=== PATIENT | female | born 1950 | race Caucasian/White ===

== ENCOUNTER 2018-09-23 06:14 | Inpatient (IN) | payer MEDICARE, OTHER ==
[2018-09-23] MEDS: ALBUTEROL 0.083% (NEB) 2.5 MG/3 ML AMP HHN (06:29)
[2018-09-23] MEDS: IPRATROPIUM (NEB) 0.5 MG/2.5 ML AMP HHN (06:29)
[2018-09-23 06:54] LABS: ADD MAN DIFF? NO
[2018-09-23 06:55] LABS: WHITE BLOOD COUNT 14.8 10^3/ul (4.8-10.8)
[2018-09-23 06:55] LABS: BASOPHIL # 0.1 10^3/ul (0.0-0.1); BASOPHILS % 0.3 % (0.0-2.0); EOSINOPHILS # 0.4 10^3/ul (0.0-0.5); EOSINOPHILS % 2.8 % (0.0-7.0); HEMATOCRIT 36.7 % (37.0-47.0); HEMOGLOBIN 11.1 g/dl (12.0-16.0); LYMPHOCYTES # 3.5 10^3/ul (0.8-2.9); LYMPHOCYTES % 23.5 % (15.0-51.0); MEAN CORPUSCULAR HEMOGLOBIN 29.6 pg (29.0-33.0); MEAN CORPUSCULAR HGB CONC 30.2 g/dl (32.0-37.0); MEAN CORPUSCULAR VOLUME 97.9 fl (82.0-101.0); MEAN PLATELET VOLUME 9.5 fl (7.4-10.4); MONOCYTE # 1.1 10^3/ul (0.3-0.9); MONOCYTES % 7.6 % (0.0-11.0); NEUTROPHIL # 9.4 10^3/ul (1.6-7.5); NEUTROPHILS % 63.3 % (39.0-77.0); PLATELET COUNT 180 10^3/UL (140-415); RED BLOOD COUNT 3.75 10^6/ul (4.20-5.40); RED CELL DISTRIBUTION WIDTH 15.3 % (11.5-14.5)
[2018-09-23 07:18] LABS: INR 1.02; PROTIME 13.5 Sec (11.9-14.9); PT RATIO 1.1
[2018-09-23] MEDS: SOD CHLORIDE 0.9% 1,000 ML IV ×2 (07:21→15:02)
[2018-09-23] MEDS: METHYLPREDNISOLONE 125 MG INJ IV (07:21)
[2018-09-23] MEDS: CEFTRIAXONE 1 GM/50 ML (PMX) 50 ML IVPB ×2 (07:22→10:30)
[2018-09-23 07:25] LABS: ANION GAP 7 (5-13); BLOOD UREA NITROGEN 14 mg/dl (7-20); CARBON DIOXIDE 27 mmol/L (21-31); CHLORIDE 108 mmol/L (97-110); CREATININE 0.69 mg/dl (0.44-1.00); Estimated GFR > 60 mL/min (>60); GLUCOSE 121 mg/dl (70-220); POTASSIUM 4.2 mmol/L (3.5-5.1); SODIUM 142 mmol/L (135-144)
[2018-09-23 07:36] LABS: TROPONIN-I 0.116 ng/ml (0.000-0.120)
[2018-09-23] MEDS ORDERED: ONDANSETRON 4 MG INJ IV ×2 (08:00→10:30)
[2018-09-23] MEDS ORDERED: ACETAMINOPHEN 325 MG TAB PO ×2 (08:00→10:30)
[2018-09-23] MEDS: AZITHROMYCIN 500MG/NS (PMX) 250 ML IV (08:20)
[2018-09-23] MEDS ORDERED: NACL 0.9% 3 ML SYG IV (10:30)
[2018-09-23 11:20] LABS: LACTIC ACID 2.6 mmol/L (0.5-2.0)
[2018-09-23] MEDS: ALBUTEROL/IPRATROPIUM (NEB) 3 ML AMP HHN ×3 (12:00→20:41)
[2018-09-23] MEDS: BUDESONIDE (NEB) 0.5MG/2ML AMP HHN ×2 (12:00→20:41)
[2018-09-23] MEDS: METHYLPREDNISOLONE 40 MG INJ IV ×4 (13:24→23:15)
[2018-09-23] MEDS ORDERED: MAGNESIUM HYDROXIDE 30ML CUP PO (17:00)
[2018-09-23] MEDS: SERTRALINE 50 MG TAB PO (17:49)
[2018-09-23] MEDS: LORAZEPAM 1 MG TAB PO (17:49)
[2018-09-23] MEDS: GUAIFENESIN/DM 5ML CUP PO (17:54)
[2018-09-23 20:20] LABS: LACTIC ACID 4.2 mmol/L (0.5-2.0)
[2018-09-23] MEDS: clonAZEPAM 0.5 MG TAB PO (21:02)
[2018-09-23] MEDS: QUETIAPINE 100 MG TAB PO (21:03)
[2018-09-23] MEDS: LAMOTRIGINE 100 MG TAB PO (21:04)
[2018-09-23] MEDS: FAMOTIDINE 20 MG TAB PO (21:05)
[2018-09-23] MEDS: DOCUSATE SODIUM 100 MG CAP PO (21:15)
[2018-09-23] MEDS: HYDROCODONE/APAP (5/325) TAB PO (21:38)
[2018-09-24] MEDS: ALBUTEROL/IPRATROPIUM (NEB) 3 ML AMP HHN ×6 (01:25→20:44)
[2018-09-24] MEDS: GUAIFENESIN/DM 5ML CUP PO (04:36)
[2018-09-24] MEDS: LORAZEPAM 1 MG TAB PO ×2 (04:36→21:45)
[2018-09-24] MEDS: PANTOPRAZOLE 40 MG INJ IV (06:27)
[2018-09-24] MEDS: METHYLPREDNISOLONE 40 MG INJ IV ×3 (06:27→21:38)
[2018-09-24] MEDS: LEVOTHYROXINE 88 MCG TAB PO (06:27)
[2018-09-24 07:01] LABS: ADD MAN DIFF? NO
[2018-09-24 07:07] LABS: WHITE BLOOD COUNT 17.6 10^3/ul (4.8-10.8)
[2018-09-24 07:07] LABS: BASOPHILS % 0.1 % (0.0-2.0); EOSINOPHILS % 0.1 % (0.0-7.0); HEMATOCRIT 33.5 % (37.0-47.0); HEMOGLOBIN 10.2 g/dl (12.0-16.0); LYMPHOCYTES # 1.6 10^3/ul (0.8-2.9); LYMPHOCYTES % 9.1 % (15.0-51.0); MEAN CORPUSCULAR HEMOGLOBIN 29.8 pg (29.0-33.0); MEAN CORPUSCULAR HGB CONC 30.4 g/dl (32.0-37.0); MEAN PLATELET VOLUME 9.9 fl (7.4-10.4); MONOCYTE # 0.9 10^3/ul (0.3-0.9); MONOCYTES % 5.3 % (0.0-11.0); NEUTROPHIL # 14.6 10^3/ul (1.6-7.5); NEUTROPHILS % 83.2 % (39.0-77.0); PLATELET COUNT 187 10^3/UL (140-415); RED BLOOD COUNT 3.42 10^6/ul (4.20-5.40); RED CELL DISTRIBUTION WIDTH 15.3 % (11.5-14.5)
[2018-09-24 07:33] LABS: PHOSPHORUS 3.2 mg/dl (2.5-4.9)
[2018-09-24 07:33] LABS: MAGNESIUM 2.2 mg/dl (1.7-2.5)
[2018-09-24 07:34] LABS: ANION GAP 7 (5-13); BLOOD UREA NITROGEN 13 mg/dl (7-20); CARBON DIOXIDE 23 mmol/L (21-31); CHLORIDE 113 mmol/L (97-110); CREATININE 0.56 mg/dl (0.44-1.00); Estimated GFR > 60 mL/min (>60); GLUCOSE 155 mg/dl (70-220); POTASSIUM 4.4 mmol/L (3.5-5.1); SODIUM 143 mmol/L (135-144)
[2018-09-24 07:39] LABS: LACTIC ACID 2.6 mmol/L (0.5-2.0)
[2018-09-24] MEDS: BUDESONIDE (NEB) 0.5MG/2ML AMP HHN ×2 (08:42→20:44)
[2018-09-24] MEDS ORDERED: AZITHROMYCIN 500 MG in SOD CHLORIDE 0.9% 250 ML IVPB (09:00)
[2018-09-24] MEDS: MULTIVITAMINS THERAPEUTIC TAB PO (09:40)
[2018-09-24] MEDS: SERTRALINE 50 MG TAB PO (09:40)
[2018-09-24] MEDS: FAMOTIDINE 20 MG TAB PO ×2 (09:41→21:37)
[2018-09-24] MEDS: LIOTHYRONINE 5 MCG TAB PO (09:41)
[2018-09-24] MEDS: ENOXAPARIN 40 MG/0.4 ML SYG SC (09:41)
[2018-09-24] MEDS ORDERED: PENDING SANTYL ORDER FOR WOUND CARE XX (10:00)
[2018-09-24] MEDS: SOD CHLORIDE 0.9% 1,000 ML IV (14:06)
[2018-09-24] MEDS: CEPASTAT LOZENGE MT (15:55)
[2018-09-24] MEDS: HYDROCODONE/APAP (5/325) TAB PO (16:13)
[2018-09-24] MEDS: FUROSEMIDE 40 MG INJ IV (17:05)
[2018-09-24 17:44] LABS: AADO2 Arterial 161.4 mmHg (7.0-24.0); Allen Test ACCEPTAB; Arterial Base Excess -1.8 mmol/L (-3.0-3); Arterial Blood Gas Oxygen Sat 86.8 mmHG (95.0-98.0); Arterial COHb 0.3 % (0.0-3.0); Arterial Fraction of Oxyhgb 86.3 % (93.0-99.0); Arterial HCO3 21.6 mmol/L (22.0-26.0); Arterial MetHb 0.3 % (0.0-1.5); Arterial Total Hemglobin 11.9 g/dl (12.0-18.0); Arterial pCO2 32.1 mmhg (35-45); MODE MASK - VENTI; Site Left Radial
[2018-09-24] MEDS ORDERED: SODIUM CHLORIDE 5% 15ML OPH BOTH EYES (20:30)
[2018-09-24] MEDS: BALSAM PERU/CASTOR OIL 60 GM TUBE TOP (21:00)
[2018-09-24] MEDS: QUETIAPINE 100 MG TAB PO (21:38)
[2018-09-24] MEDS: LAMOTRIGINE 100 MG TAB PO (21:39)
[2018-09-24] MEDS: clonAZEPAM 0.5 MG TAB PO (21:39)
[2018-09-24] MEDS: DOCUSATE SODIUM 100 MG CAP PO (21:46)
[2018-09-24] MEDS ORDERED: OCULAR LUBRICANT 3.5 GM OPH OINT BOTH EYES (23:30)
[2018-09-25] MEDS: ALBUTEROL/IPRATROPIUM (NEB) 3 ML AMP HHN ×6 (01:00→20:39)
[2018-09-25] MEDS: PANTOPRAZOLE 40 MG INJ IV (06:41)
[2018-09-25] MEDS: METHYLPREDNISOLONE 40 MG INJ IV ×3 (06:41→22:35)
[2018-09-25] MEDS: LEVOFLOXACIN 500 MG TAB PO (06:42)
[2018-09-25] MEDS: LEVOTHYROXINE 88 MCG TAB PO (06:43)
[2018-09-25 07:33] LABS: ADD MAN DIFF? NO
[2018-09-25 07:43] LABS: WHITE BLOOD COUNT 18.9 10^3/ul (4.8-10.8)
[2018-09-25 07:43] LABS: BASOPHILS % 0.1 % (0.0-2.0); EOSINOPHILS % 0.2 % (0.0-7.0); HEMATOCRIT 33.5 % (37.0-47.0); HEMOGLOBIN 10.2 g/dl (12.0-16.0); LYMPHOCYTES # 2.2 10^3/ul (0.8-2.9); LYMPHOCYTES % 11.4 % (15.0-51.0); MEAN CORPUSCULAR HEMOGLOBIN 29.9 pg (29.0-33.0); MEAN CORPUSCULAR HGB CONC 30.4 g/dl (32.0-37.0); MEAN CORPUSCULAR VOLUME 98.2 fl (82.0-101.0); MEAN PLATELET VOLUME 10.1 fl (7.4-10.4); MONOCYTE # 1.4 10^3/ul (0.3-0.9); MONOCYTES % 7.6 % (0.0-11.0); NEUTROPHIL # 14.9 10^3/ul (1.6-7.5); NEUTROPHILS % 78.9 % (39.0-77.0); PLATELET COUNT 176 10^3/UL (140-415); RED BLOOD COUNT 3.41 10^6/ul (4.20-5.40); RED CELL DISTRIBUTION WIDTH 15.6 % (11.5-14.5)
[2018-09-25 08:00] LABS: ANION GAP 6 (5-13); BLOOD UREA NITROGEN 14 mg/dl (7-20); CALCIUM 9.5 mg/dl (8.4-10.2); CARBON DIOXIDE 28 mmol/L (21-31); CHLORIDE 108 mmol/L (97-110); Estimated GFR > 60 mL/min (>60); GLUCOSE 141 mg/dl (70-220); POTASSIUM 3.7 mmol/L (3.5-5.1); SODIUM 142 mmol/L (135-144)
[2018-09-25] MEDS: BUDESONIDE (NEB) 0.5MG/2ML AMP HHN ×2 (09:05→20:39)
[2018-09-25] MEDS: FAMOTIDINE 20 MG TAB PO ×2 (09:31→21:02)
[2018-09-25] MEDS: MULTIVITAMINS THERAPEUTIC TAB PO (09:31)
[2018-09-25] MEDS: SERTRALINE 50 MG TAB PO (09:31)
[2018-09-25] MEDS: LIOTHYRONINE 5 MCG TAB PO (09:31)
[2018-09-25] MEDS: BALSAM PERU/CASTOR OIL 60 GM TUBE TOP ×2 (09:32→21:35)
[2018-09-25 09:52] LABS: AADO2 Arterial 411.3 mmHg (7.0-24.0); Allen Test ACCEPTAB; Arterial Base Excess -1.1 mmol/L (-3.0-3); Arterial Blood Gas Oxygen Sat 89.1 mmHG (95.0-98.0); Arterial COHb 0.2 % (0.0-3.0); Arterial Fraction of Oxyhgb 88.7 % (93.0-99.0); Arterial HCO3 21.7 mmol/L (22.0-26.0); Arterial MetHb 0.3 % (0.0-1.5); Arterial Total Hemglobin 11.3 g/dl (12.0-18.0); Arterial pCO2 30.1 mmhg (35-45); MODE HFNC; Site Left Radial
[2018-09-25] MEDS: ENOXAPARIN 40 MG/0.4 ML SYG SC (10:08)
[2018-09-25] MEDS: FUROSEMIDE 20 MG INJ IV (15:40)
[2018-09-25] MEDS: SOD CHLORIDE 0.9% 100 ML (16:27)
[2018-09-25] MEDS: IODIXANOL LOCM 100 ML BTL (16:27)
[2018-09-25] MEDS ORDERED: HEPARIN 1000 UNITS/ML 10 ML INJ IV (18:00)
[2018-09-25] MEDS ORDERED: HEPARIN 1000 UNITS/ML 10 ML INJ (18:04)
[2018-09-25] MEDS ORDERED: HEPARIN 25000 UNITS/250 ML 250 ML (18:05)
[2018-09-25] MEDS: LORAZEPAM 1 MG TAB PO (18:14)
[2018-09-25 18:16] LABS: ADD MAN DIFF? NO
[2018-09-25 18:17] LABS: WHITE BLOOD COUNT 14.5 10^3/ul (4.8-10.8)
[2018-09-25 18:17] LABS: BASOPHILS % 0.1 % (0.0-2.0); EOSINOPHILS % 0.3 % (0.0-7.0); HEMATOCRIT 36.3 % (37.0-47.0); HEMOGLOBIN 11.1 g/dl (12.0-16.0); LYMPHOCYTES % 7.2 % (15.0-51.0); MEAN CORPUSCULAR HEMOGLOBIN 29.7 pg (29.0-33.0); MEAN CORPUSCULAR HGB CONC 30.6 g/dl (32.0-37.0); MEAN CORPUSCULAR VOLUME 97.1 fl (82.0-101.0); MEAN PLATELET VOLUME 9.6 fl (7.4-10.4); MONOCYTE # 0.6 10^3/ul (0.3-0.9); MONOCYTES % 3.9 % (0.0-11.0); NEUTROPHIL # 12.5 10^3/ul (1.6-7.5); NEUTROPHILS % 85.9 % (39.0-77.0); PLATELET COUNT 213 10^3/UL (140-415); RED BLOOD COUNT 3.74 10^6/ul (4.20-5.40); RED CELL DISTRIBUTION WIDTH 15.5 % (11.5-14.5)
[2018-09-25] MEDS: HEPARIN 1000 UNITS/ML 10 ML INJ IV (18:25)
[2018-09-25] MEDS: HEPARIN 25000 UNITS/250 ML 250 ML IV (18:30)
[2018-09-25 18:48] LABS: INR 0.98; PROTIME 13.1 Sec (11.9-14.9)
[2018-09-25 18:49] LABS: PARTIAL THROMBOPLASTIN TIME 26.6 Sec (23.0-35.0)
[2018-09-25] MEDS: clonAZEPAM 0.5 MG TAB PO (21:01)
[2018-09-25] MEDS: LAMOTRIGINE 100 MG TAB PO (21:01)
[2018-09-25] MEDS: QUETIAPINE 100 MG TAB PO (21:02)
[2018-09-25] MEDS: HYDROCODONE/APAP (5/325) TAB PO (21:03)
[2018-09-26] MEDS: ALBUTEROL/IPRATROPIUM (NEB) 3 ML AMP HHN ×7 (01:40→20:59)
[2018-09-26] MEDS: PANTOPRAZOLE 40 MG INJ IV (05:52)
[2018-09-26] MEDS: LEVOFLOXACIN 500 MG TAB PO (05:52)
[2018-09-26] MEDS: METHYLPREDNISOLONE 40 MG INJ IV ×3 (05:52→21:33)
[2018-09-26 06:24] LABS: ADD MAN DIFF? NO
[2018-09-26] MEDS: LEVOTHYROXINE 88 MCG TAB PO (06:27)
[2018-09-26] MEDS: FUROSEMIDE 20 MG INJ IV (06:27)
[2018-09-26 06:35] LABS: BASOPHILS % 0.2 % (0.0-2.0); EOSINOPHILS # 0.1 10^3/ul (0.0-0.5); EOSINOPHILS % 0.4 % (0.0-7.0); HEMOGLOBIN 10.7 g/dl (12.0-16.0); LYMPHOCYTES # 2.3 10^3/ul (0.8-2.9); LYMPHOCYTES % 14.8 % (15.0-51.0); MEAN CORPUSCULAR HEMOGLOBIN 29.6 pg (29.0-33.0); MEAN CORPUSCULAR HGB CONC 30.6 g/dl (32.0-37.0); MEAN CORPUSCULAR VOLUME 96.7 fl (82.0-101.0); MEAN PLATELET VOLUME 10.4 fl (7.4-10.4); MONOCYTE # 1.3 10^3/ul (0.3-0.9); MONOCYTES % 8.3 % (0.0-11.0); NEUTROPHIL # 11.3 10^3/ul (1.6-7.5); NEUTROPHILS % 73.7 % (39.0-77.0); PLATELET COUNT 220 10^3/UL (140-415); RED BLOOD COUNT 3.62 10^6/ul (4.20-5.40); RED CELL DISTRIBUTION WIDTH 15.2 % (11.5-14.5)
[2018-09-26 06:35] LABS: WHITE BLOOD COUNT 15.3 10^3/ul (4.8-10.8)
[2018-09-26 07:01] LABS: ANION GAP 8 (5-13); BLOOD UREA NITROGEN 18 mg/dl (7-20); CALCIUM 9.8 mg/dl (8.4-10.2); CARBON DIOXIDE 29 mmol/L (21-31); CHLORIDE 103 mmol/L (97-110); CREATININE 0.63 mg/dl (0.44-1.00); Estimated GFR > 60 mL/min (>60); GLUCOSE 129 mg/dl (70-220); POTASSIUM 3.8 mmol/L (3.5-5.1); SODIUM 140 mmol/L (135-144)
[2018-09-26] MEDS: SERTRALINE 50 MG TAB PO (08:50)
[2018-09-26] MEDS: MULTIVITAMINS THERAPEUTIC TAB PO (08:50)
[2018-09-26] MEDS: FAMOTIDINE 20 MG TAB PO ×2 (08:50→21:32)
[2018-09-26] MEDS: LIOTHYRONINE 5 MCG TAB PO (08:50)
[2018-09-26] MEDS: BALSAM PERU/CASTOR OIL 60 GM TUBE TOP ×2 (08:55→21:34)
[2018-09-26] MEDS: BUDESONIDE (NEB) 0.5MG/2ML AMP HHN ×3 (09:00→20:59)
[2018-09-26] MEDS: LORAZEPAM 1 MG TAB PO ×2 (13:46→19:17)
[2018-09-26] MEDS: HEPARIN 25000 UNITS/250 ML 250 ML IV (20:54)
[2018-09-26] MEDS: clonAZEPAM 0.5 MG TAB PO (21:32)
[2018-09-26] MEDS: LAMOTRIGINE 100 MG TAB PO (21:33)
[2018-09-26] MEDS: QUETIAPINE 100 MG TAB PO (21:33)
[2018-09-27] MEDS: HYDROCODONE/APAP (5/325) TAB PO ×2 (01:01→13:31)
[2018-09-27] MEDS: COLLAGENASE 5 GM (UD JAR) TOP ×2 (01:01→08:45)
[2018-09-27] MEDS: ALBUTEROL/IPRATROPIUM (NEB) 3 ML AMP HHN ×7 (01:23→23:38)
[2018-09-27 05:12] LABS: ADD MAN DIFF? NO
[2018-09-27 05:19] LABS: WHITE BLOOD COUNT 15.3 10^3/ul (4.8-10.8)
[2018-09-27 05:19] LABS: BASOPHILS % 0.2 % (0.0-2.0); EOSINOPHILS # 0.1 10^3/ul (0.0-0.5); EOSINOPHILS % 0.5 % (0.0-7.0); HEMATOCRIT 32.9 % (37.0-47.0); HEMOGLOBIN 10.4 g/dl (12.0-16.0); LYMPHOCYTES # 2.5 10^3/ul (0.8-2.9); LYMPHOCYTES % 16.1 % (15.0-51.0); MEAN CORPUSCULAR HGB CONC 31.6 g/dl (32.0-37.0); MEAN CORPUSCULAR VOLUME 94.8 fl (82.0-101.0); MONOCYTE # 0.9 10^3/ul (0.3-0.9); MONOCYTES % 5.8 % (0.0-11.0); NEUTROPHIL # 11.3 10^3/ul (1.6-7.5); NEUTROPHILS % 74.2 % (39.0-77.0); NUCLEATED RED BLOOD CELLS% 0.1 /100WBC (0.0-0.0); PLATELET COUNT 199 10^3/UL (140-415); RED BLOOD COUNT 3.47 10^6/ul (4.20-5.40); RED CELL DISTRIBUTION WIDTH 14.7 % (11.5-14.5)
[2018-09-27 05:44] LABS: PARTIAL THROMBOPLASTIN TIME 53.3 Sec (23.0-35.0)
[2018-09-27 05:58] LABS: ANION GAP 8 (5-13); BLOOD UREA NITROGEN 20 mg/dl (7-20); CALCIUM 9.6 mg/dl (8.4-10.2); CARBON DIOXIDE 29 mmol/L (21-31); CHLORIDE 102 mmol/L (97-110); CREATININE 0.64 mg/dl (0.44-1.00); Estimated GFR > 60 mL/min (>60); GLUCOSE 145 mg/dl (70-220); POTASSIUM 3.5 mmol/L (3.5-5.1); SODIUM 139 mmol/L (135-144)
[2018-09-27] MEDS: METHYLPREDNISOLONE 40 MG INJ IV ×3 (06:37→21:03)
[2018-09-27] MEDS: PANTOPRAZOLE 40 MG INJ IV (06:37)
[2018-09-27] MEDS: LEVOFLOXACIN 500 MG TAB PO (06:38)
[2018-09-27] MEDS: FUROSEMIDE 20 MG INJ IV (06:38)
[2018-09-27] MEDS: LEVOTHYROXINE 88 MCG TAB PO (06:38)
[2018-09-27 07:07] LABS: PHOSPHORUS 4.3 mg/dl (2.5-4.9)
[2018-09-27 07:07] LABS: MAGNESIUM 2.1 mg/dl (1.7-2.5)
[2018-09-27] MEDS: FAMOTIDINE 20 MG TAB PO (08:45)
[2018-09-27] MEDS: MULTIVITAMINS THERAPEUTIC TAB PO (08:46)
[2018-09-27] MEDS: SERTRALINE 50 MG TAB PO (08:46)
[2018-09-27] MEDS: BALSAM PERU/CASTOR OIL 60 GM TUBE TOP ×2 (08:47→20:11)
[2018-09-27] MEDS: LIOTHYRONINE 5 MCG TAB PO (08:55)
[2018-09-27] MEDS ORDERED: COLLAGENASE 5 GM (UD JAR) TOP (09:00)
[2018-09-27] MEDS: HEPARIN 1000 UNITS/ML 10 ML INJ IV (09:00)
[2018-09-27] MEDS: BUDESONIDE (NEB) 0.5MG/2ML AMP HHN ×2 (09:14→20:05)
[2018-09-27 10:35] LABS: ADD UMIC YES; UR AMORPHOUS CRYSTAL FEW /HPF (NONE SEEN); UR ASCORBIC ACID NEGATIVE (NEGATIVE); UR BACTERIA FEW /HPF (NONE SEEN); UR BILIRUBIN (Dip) NEGATIVE (NEGATIVE); UR BLOOD (Dip) 2+ mg/dL (NEGATIVE); UR CLARITY CLOUDY (CLEAR); UR COLOR YELLOW (YELLOW); UR GLUCOSE (Dip) 1+ mg/dL (NEGATIVE); UR KETONES (Dip) TRACE mg/dL (NEGATIVE); UR LEUKOCYTE ESTERASE (Dip) NEGATIVE Leu/ul (NEGATIVE); UR NITRITE (Dip) NEGATIVE (NEGATIVE); UR RBC 73 /HPF (0-5); UR SPECIFIC GRAVITY (Dip) 1.017 (1.003-1.030); UR TOTAL PROTEIN (Dip) 3+ mg/dl (NEGATIVE); UR UROBILINOGEN (Dip) NEGATIVE (NEGATIVE); UR WBC 9 /HPF (0-5)
[2018-09-27] MEDS: LACTULOSE 30ML CUP PO (12:34)
[2018-09-27 15:59] LABS: PARTIAL THROMBOPLASTIN TIME 108.4 Sec (23.0-35.0)
[2018-09-27 18:13] LABS: 50/50 PTT IMMED 74.6 Sec
[2018-09-27] MEDS: FUROSEMIDE 40 MG INJ IV (18:18)
[2018-09-27] MEDS: clonAZEPAM 0.5 MG TAB PO (20:10)
[2018-09-27] MEDS: QUETIAPINE 100 MG TAB PO (20:10)
[2018-09-27] MEDS: LAMOTRIGINE 100 MG TAB PO (20:10)
[2018-09-27] MEDS: DOCUSATE SODIUM 100 MG CAP PO (20:14)
[2018-09-27] MEDS: LORAZEPAM 1 MG TAB PO (21:03)
[2018-09-27 22:04] LABS: 50/50 PTT 1 HOUR 99.9 Sec
[2018-09-28] MEDS: ALBUTEROL/IPRATROPIUM (NEB) 3 ML AMP HHN ×6 (05:00→20:09)
[2018-09-28] MEDS: HYDROCODONE/APAP (5/325) TAB PO ×3 (05:08→15:12)
[2018-09-28] MEDS: LEVOFLOXACIN 500 MG TAB PO (05:32)
[2018-09-28] MEDS: PANTOPRAZOLE (EC) 40 MG TAB PO (05:32)
[2018-09-28] MEDS: METHYLPREDNISOLONE 40 MG INJ IV ×3 (05:32→21:08)
[2018-09-28 05:57] LABS: ADD MAN DIFF? NO; HAAIG REFLEX REFLEX FILED
[2018-09-28] MEDS: FUROSEMIDE 40 MG INJ IV ×2 (05:57→17:50)
[2018-09-28 06:17] LABS: BASOPHIL # 0.1 10^3/ul (0.0-0.1); BASOPHILS % 0.3 % (0.0-2.0); EOSINOPHILS # 0.1 10^3/ul (0.0-0.5); EOSINOPHILS % 0.8 % (0.0-7.0); HEMATOCRIT 37.5 % (37.0-47.0); HEMOGLOBIN 11.7 g/dl (12.0-16.0); LYMPHOCYTES # 3.5 10^3/ul (0.8-2.9); LYMPHOCYTES % 20.6 % (15.0-51.0); MEAN CORPUSCULAR HEMOGLOBIN 29.4 pg (29.0-33.0); MEAN CORPUSCULAR HGB CONC 31.2 g/dl (32.0-37.0); MEAN CORPUSCULAR VOLUME 94.2 fl (82.0-101.0); MEAN PLATELET VOLUME 9.5 fl (7.4-10.4); MONOCYTE # 1.1 10^3/ul (0.3-0.9); MONOCYTES % 6.7 % (0.0-11.0); NEUTROPHIL # 11.2 10^3/ul (1.6-7.5); NEUTROPHILS % 66.7 % (39.0-77.0); NUCLEATED RED BLOOD CELLS% 0.1 /100WBC (0.0-0.0); PLATELET COUNT 245 10^3/UL (140-415); RED BLOOD COUNT 3.98 10^6/ul (4.20-5.40); RED CELL DISTRIBUTION WIDTH 14.6 % (11.5-14.5)
[2018-09-28 06:17] LABS: WHITE BLOOD COUNT 16.8 10^3/ul (4.8-10.8)
[2018-09-28 06:41] LABS: ANION GAP 8 (5-13); BLOOD UREA NITROGEN 25 mg/dl (7-20); CALCIUM 9.9 mg/dl (8.4-10.2); CARBON DIOXIDE 34 mmol/L (21-31); CHLORIDE 97 mmol/L (97-110); CREATININE 0.68 mg/dl (0.44-1.00); Estimated GFR > 60 mL/min (>60); GLUCOSE 129 mg/dl (70-220); MAGNESIUM 2.2 mg/dl (1.7-2.5); PHOSPHORUS 4.4 mg/dl (2.5-4.9); POTASSIUM 3.4 mmol/L (3.5-5.1); SODIUM 139 mmol/L (135-144)
[2018-09-28 06:41] LABS: PARTIAL THROMBOPLASTIN TIME 80.3 Sec (23.0-35.0)
[2018-09-28 07:45] LABS: AADO2 Arterial 365.3 mmHg (7.0-24.0); Allen Test ACCEPTAB; Arterial Base Excess 4.4 mmol/L (-3.0-3); Arterial COHb 0.7 % (0.0-3.0); Arterial HCO3 28.5 mmol/L (22.0-26.0); Arterial MetHb 0.3 % (0.0-1.5); Arterial Total Hemglobin 13.3 g/dl (12.0-18.0); Arterial pCO2 40.5 mmhg (35-45); MODE HFNC; Site Right Radial
[2018-09-28] MEDS: BUDESONIDE (NEB) 0.5MG/2ML AMP HHN ×2 (09:23→20:09)
[2018-09-28 09:44] LABS: HEPATITIS B SURFACE ANTIGEN NEGATIVE (NEGATIVE)
[2018-09-28] MEDS: MULTIVITAMINS THERAPEUTIC TAB PO (09:55)
[2018-09-28] MEDS: LIOTHYRONINE 5 MCG TAB PO (09:55)
[2018-09-28] MEDS: COLLAGENASE 5 GM (UD JAR) TOP (09:55)
[2018-09-28] MEDS: LEVOTHYROXINE 88 MCG TAB PO (09:55)
[2018-09-28] MEDS: SERTRALINE 50 MG TAB PO (09:55)
[2018-09-28] MEDS: BALSAM PERU/CASTOR OIL 60 GM TUBE TOP ×2 (09:56→20:35)
[2018-09-28 10:02] LABS: HEPATITIS B CORE ANTIBODY NEGATIVE (NEGATIVE); HEPATITIS C VIRAL ANTIBODY NEGATIVE (NEGATIVE); HIV 1&2 ANTIBODY NEGATIVE (NEGATIVE)
[2018-09-28] MEDS: LIDOCAINE 1% (MPF) 5 ML VIAL SC (10:21)
[2018-09-28 10:29] LABS: COMPLEMENT C3 160 mg/dl (88-165)
[2018-09-28] MEDS: POTASSIUM CHLORIDE (SR) 20 MEQ TAB PO (10:32)
[2018-09-28 10:48] LABS: COMPLEMENT C4 80 mg/dl (14-44)
[2018-09-28] MEDS ORDERED: PIPER-TAZO 3.375 GM IV (PMX) 100 ML IVPB (12:30)
[2018-09-28] MEDS: PIPER-TAZO 3.375 GM IV (PMX) 100 ML IVPB ×2 (12:33→17:52)
[2018-09-28] MEDS ORDERED: HYDROCODONE/APAP (5/325) TAB PO (14:00)
[2018-09-28 15:16] LABS: PARTIAL THROMBOPLASTIN TIME 78.5 Sec (23.0-35.0)
[2018-09-28 15:38] LABS: ADD UMIC NO; UR ASCORBIC ACID NEGATIVE (NEGATIVE); UR BILIRUBIN (Dip) NEGATIVE (NEGATIVE); UR BLOOD (Dip) NEGATIVE (NEGATIVE); UR CLARITY CLEAR (CLEAR); UR COLOR YELLOW (YELLOW); UR GLUCOSE (Dip) NEGATIVE (NEGATIVE); UR KETONES (Dip) NEGATIVE (NEGATIVE); UR LEUKOCYTE ESTERASE (Dip) NEGATIVE Leu/ul (NEGATIVE); UR NITRITE (Dip) NEGATIVE (NEGATIVE); UR SPECIFIC GRAVITY (Dip) 1.024 (1.003-1.030); UR TOTAL PROTEIN (Dip) NEGATIVE (NEGATIVE); UR UROBILINOGEN (Dip) NEGATIVE (NEGATIVE)
[2018-09-28 15:59] LABS: CREATININE,URINE RANDOM 105.76 mg/dl (20-320); PROTEIN/CREAT RATIO 0.08 RATIO
[2018-09-28 17:46] LABS: 50/50 PTT IMMED 56.6 Sec
[2018-09-28] MEDS: HEPARIN 25000 UNITS/250 ML 250 ML IV (17:51)
[2018-09-28 18:00] LABS: 50/50 PTT 1 HOUR 68.2 Sec
[2018-09-28 18:00] LABS: PARTIAL THROMBOPLASTIN TIME 78.5 Sec (23.0-35.0)
[2018-09-28] MEDS: LORAZEPAM 1 MG TAB PO (19:41)
[2018-09-28] MEDS: LAMOTRIGINE 100 MG TAB PO (20:34)
[2018-09-28] MEDS: clonAZEPAM 0.5 MG TAB PO (20:34)
[2018-09-28] MEDS: QUETIAPINE 100 MG TAB PO (20:35)
[2018-09-28] MEDS: DOCUSATE SODIUM 100 MG CAP PO (20:41)
[2018-09-28 22:29] LABS: RAPID PLASMA REAGIN NONREACTIVE (NR)
[2018-09-29] MEDS: ALBUTEROL/IPRATROPIUM (NEB) 3 ML AMP HHN ×6 (00:27→20:56)
[2018-09-29] MEDS: PIPER-TAZO 3.375 GM IV (PMX) 100 ML IVPB ×3 (01:39→17:14)
[2018-09-29] MEDS: FUROSEMIDE 40 MG INJ IV ×4 (06:00→17:16)
[2018-09-29] MEDS: METHYLPREDNISOLONE 40 MG INJ IV ×3 (06:05→21:30)
[2018-09-29] MEDS: LEVOTHYROXINE 88 MCG TAB PO (06:05)
[2018-09-29] MEDS: PANTOPRAZOLE (EC) 40 MG TAB PO (06:05)
[2018-09-29 06:35] LABS: PARTIAL THROMBOPLASTIN TIME 90.4 Sec (23.0-35.0)
[2018-09-29 07:24] LABS: AADO2 Arterial 226.4 mmHg (7.0-24.0); Allen Test ACCEPTAB; Arterial Base Excess 3.4 mmol/L (-3.0-3); Arterial Blood Gas Oxygen Sat 96.1 mmHG (95.0-98.0); Arterial COHb 0.7 % (0.0-3.0); Arterial Fraction of Oxyhgb 95.1 % (93.0-99.0); Arterial MetHb 0.3 % (0.0-1.5); Arterial Total Hemglobin 13.4 g/dl (12.0-18.0); Arterial pCO2 42.7 mmhg (35-45); MODE HFNC; Site Right Radial
[2018-09-29] MEDS: BUDESONIDE (NEB) 0.5MG/2ML AMP HHN ×2 (08:03→20:56)
[2018-09-29] MEDS: LIOTHYRONINE 5 MCG TAB PO (09:32)
[2018-09-29] MEDS: MULTIVITAMINS THERAPEUTIC TAB PO (09:32)
[2018-09-29] MEDS: SERTRALINE 50 MG TAB PO (09:32)
[2018-09-29] MEDS: COLLAGENASE 5 GM (UD JAR) TOP (09:34)
[2018-09-29] MEDS: BALSAM PERU/CASTOR OIL 60 GM TUBE TOP ×2 (09:34→21:29)
[2018-09-29] MEDS: GUAIFENESIN/DM 5ML CUP PO (12:07)
[2018-09-29] MEDS: HYDROCODONE/APAP (5/325) TAB PO (12:33)
[2018-09-29] MEDS: APIXABAN 5 MG TABLET PO ×2 (12:45→21:28)
[2018-09-29] MEDS: LORAZEPAM 1 MG TAB PO ×2 (16:16→21:27)
[2018-09-29 16:43] LABS: MYELOPEROXIDASE ANTIBODY <1.0 AI; PROTEINASE-3 ANTIBODY <1.0 AI
[2018-09-29 18:57] LABS: ANA SCREEN POSITIVE (NEGATIVE)
[2018-09-29 19:41] LABS: ANA PATTERN NUCLEOLAR; ANA TITER 1:40 titer
[2018-09-29] MEDS: QUETIAPINE 100 MG TAB PO (21:26)
[2018-09-29] MEDS: LAMOTRIGINE 100 MG TAB PO (21:27)
[2018-09-29] MEDS: clonAZEPAM 0.5 MG TAB PO (22:48)
[2018-09-30] MEDS: ALBUTEROL/IPRATROPIUM (NEB) 3 ML AMP HHN ×6 (00:56→20:59)
[2018-09-30] MEDS: PIPER-TAZO 3.375 GM IV (PMX) 100 ML IVPB ×2 (02:45→12:26)
[2018-09-30 05:26] LABS: WHITE BLOOD COUNT 19.8 10^3/ul (4.8-10.8)
[2018-09-30 05:26] LABS: ABNORMAL IP MESSAGE 1; HEMATOCRIT 40.4 % (37.0-47.0); HEMOGLOBIN 12.8 g/dl (12.0-16.0); MEAN CORPUSCULAR HEMOGLOBIN 29.4 pg (29.0-33.0); MEAN CORPUSCULAR HGB CONC 31.7 g/dl (32.0-37.0); MEAN CORPUSCULAR VOLUME 92.7 fl (82.0-101.0); MEAN PLATELET VOLUME 9.5 fl (7.4-10.4); NUCLEATED RED BLOOD CELLS% 0.1 /100WBC (0.0-0.0); PLATELET COUNT 298 10^3/UL (140-415); RED BLOOD COUNT 4.36 10^6/ul (4.20-5.40); RED CELL DISTRIBUTION WIDTH 14.4 % (11.5-14.5)
[2018-09-30 05:49] LABS: PARTIAL THROMBOPLASTIN TIME 23.5 Sec (23.0-35.0)
[2018-09-30 05:49] LABS: ADD MAN DIFF? YES; POSITIVE DIFF @See below
[2018-09-30 05:50] LABS: MAGNESIUM 2.1 mg/dl (1.7-2.5)
[2018-09-30 05:57] LABS: ALANINE AMINOTRANSFERASE 25 IU/L (13-69); ALBUMIN 3.9 g/dl (3.3-4.9); ALBUMIN/GLOBULIN RATIO 1.18; ALKALINE PHOSPHATASE 103 IU/L (42-121); ANION GAP 10 (5-13); ASPARTATE AMINO TRANSFERASE 18 IU/L (15-46); BILIRUBIN,INDIRECT 0.2 mg/dl (0-1.1); BILIRUBIN,TOTAL 0.2 mg/dl (0.2-1.3); BLOOD UREA NITROGEN 24 mg/dl (7-20); CARBON DIOXIDE 32 mmol/L (21-31); CHLORIDE 97 mmol/L (97-110); Estimated GFR > 60 mL/min (>60); GLUCOSE 161 mg/dl (70-220); POTASSIUM 3.4 mmol/L (3.5-5.1); SODIUM 139 mmol/L (135-144); TOTAL PROTEIN 7.2 g/dl (6.1-8.1)
[2018-09-30] MEDS: PANTOPRAZOLE (EC) 40 MG TAB PO (06:36)
[2018-09-30] MEDS: METHYLPREDNISOLONE 40 MG INJ IV ×3 (06:36→21:49)
[2018-09-30] MEDS: LEVOTHYROXINE 88 MCG TAB PO (06:36)
[2018-09-30] MEDS: FUROSEMIDE 40 MG INJ IV ×2 (06:37→17:42)
[2018-09-30 07:42] LABS: Allen Test ACCEPTAB; Arterial Base Excess 5.1 mmol/L (-3.0-3); Arterial Blood Gas Oxygen Sat 93.9 mmHG (95.0-98.0); Arterial COHb 0.7 % (0.0-3.0); Arterial Fraction of Oxyhgb 93.1 % (93.0-99.0); Arterial HCO3 28.8 mmol/L (22.0-26.0); Arterial MetHb 0.2 % (0.0-1.5); Arterial Total Hemglobin 14.3 g/dl (12.0-18.0); Arterial pCO2 39.1 mmhg (35-45); MODE HFNC; Site Right Radial
[2018-09-30] MEDS: SERTRALINE 50 MG TAB PO (08:36)
[2018-09-30] MEDS: MULTIVITAMINS THERAPEUTIC TAB PO (08:36)
[2018-09-30] MEDS: LIOTHYRONINE 5 MCG TAB PO (08:36)
[2018-09-30] MEDS: COLLAGENASE 5 GM (UD JAR) TOP (08:36)
[2018-09-30] MEDS: APIXABAN 5 MG TABLET PO ×2 (08:37→21:50)
[2018-09-30] MEDS: BALSAM PERU/CASTOR OIL 60 GM TUBE TOP ×2 (08:37→21:50)
[2018-09-30] MEDS: POTASSIUM CHLORIDE (SR) 20 MEQ TAB PO (09:38)
[2018-09-30] MEDS: BUDESONIDE (NEB) 0.5MG/2ML AMP HHN ×2 (10:18→20:59)
[2018-09-30 11:15] LABS: BAND NEUTROPHILS #M 0.1 10^3/ul (0.0-0.6); BAND NEUTROPHILS % (M) 1 % (0-4); BURR CELLS 2+ (0-0); LYMPHOCYTES #M 3.1 10^3/ul (0.8-2.9); LYMPHOCYTES % (M) 16 % (15-51); MONOCYTE #M 0.3 10^3/ul (0.3-0.9); MONOCYTES % (M) 2 % (0-11); MYELOCYTES #M 0.7 10^3/ul (0.0-0.0); MYELOCYTES % (M) 4 % (0-0); PLATELET ESTIMATE NORMAL; POIKILOCYTOSIS 1+ (0-0); POLYCHROMASIA 3+ (0-0); REACTIVE LYMPHOCYTES #M 0.3 10^3/ul (0.0-0.0); REACTIVE LYMPHOCYTES% (M) 2 % (0-0); SEG NEUT #M 14.9 10^3/ul (1.6-7.5); SEGMENTED NEUTROPHILS (M) % 75 % (39-77); SMUDGE%M 5 % (0-0); SPHEROCYTES 1+ (0-0)
[2018-09-30] MEDS: POTASSIUM CHLORIDE 20 MEQ POWDER FOR ORAL SOLN PO ×2 (13:02→13:20)
[2018-09-30 13:52] LABS: ANCA SCREEN NEGATIVE (NEGATIVE)
[2018-09-30] MEDS: POTASSIUM CHLORIDE 50 ML IVPB ×2 (14:50→17:42)
[2018-09-30] MEDS: FOSFOMYCIN 3 GM PACKET PO (17:42)
[2018-09-30] MEDS: HYDROCODONE/APAP (5/325) TAB PO (17:43)
[2018-09-30] MEDS: SOD CHLORIDE 0.9% IVPB (19:36)
[2018-09-30] MEDS: COLISTIMETHATE IVPB (19:36)
[2018-09-30] MEDS: QUETIAPINE 100 MG TAB PO (21:49)
[2018-09-30] MEDS: LAMOTRIGINE 100 MG TAB PO (21:49)
[2018-09-30] MEDS: clonAZEPAM 0.5 MG TAB PO (21:50)
[2018-10-01] MEDS: LORAZEPAM 1 MG TAB PO (00:22)
[2018-10-01] MEDS: ALBUTEROL/IPRATROPIUM (NEB) 3 ML AMP HHN ×7 (00:38→20:36)
[2018-10-01] MEDS: PANTOPRAZOLE (EC) 40 MG TAB PO (05:05)
[2018-10-01] MEDS: FUROSEMIDE 40 MG INJ IV ×2 (05:05→17:52)
[2018-10-01] MEDS: METHYLPREDNISOLONE 40 MG INJ IV ×3 (05:05→22:12)
[2018-10-01 05:31] LABS: ABNORMAL IP MESSAGE 1; HEMATOCRIT 39.5 % (37.0-47.0); HEMOGLOBIN 12.4 g/dl (12.0-16.0); MEAN CORPUSCULAR HEMOGLOBIN 29.1 pg (29.0-33.0); MEAN CORPUSCULAR HGB CONC 31.4 g/dl (32.0-37.0); MEAN CORPUSCULAR VOLUME 92.7 fl (82.0-101.0); MEAN PLATELET VOLUME 9.7 fl (7.4-10.4); NUCLEATED RED BLOOD CELLS% 0.1 /100WBC (0.0-0.0); PLATELET COUNT 327 10^3/UL (140-415); RED BLOOD COUNT 4.26 10^6/ul (4.20-5.40); RED CELL DISTRIBUTION WIDTH 14.2 % (11.5-14.5)
[2018-10-01 05:31] LABS: WHITE BLOOD COUNT 21.4 10^3/ul (4.8-10.8)
[2018-10-01 05:35] LABS: ADD MAN DIFF? YES; POSITIVE DIFF @See below
[2018-10-01] MEDS: COLISTIMETHATE IVPB ×2 (06:05→18:24)
[2018-10-01] MEDS: SOD CHLORIDE 0.9% IVPB ×2 (06:05→18:24)
[2018-10-01 06:23] LABS: PHOSPHORUS 4.2 mg/dl (2.5-4.9)
[2018-10-01 06:23] LABS: MAGNESIUM 2.3 mg/dl (1.7-2.5)
[2018-10-01 06:32] LABS: ANION GAP 7 (5-13); BLOOD UREA NITROGEN 28 mg/dl (7-20); CALCIUM 9.9 mg/dl (8.4-10.2); CARBON DIOXIDE 31 mmol/L (21-31); CHLORIDE 100 mmol/L (97-110); CREATININE 0.83 mg/dl (0.44-1.00); Estimated GFR > 60 mL/min (>60); GLUCOSE 128 mg/dl (70-220); POTASSIUM 4.2 mmol/L (3.5-5.1); SODIUM 138 mmol/L (135-144)
[2018-10-01 07:13] LABS: ANISOCYTOSIS 1+ (0-0); BAND NEUTROPHILS #M 0.2 10^3/ul (0.0-0.6); BAND NEUTROPHILS % (M) 1 % (0-4); EOSINOPHILS % (M) 2 % (0-7); ERYTHROBLAST% (NRBC) (M) 1 % (0-0); LYMPHOCYTES #M 3.4 10^3/ul (0.8-2.9); LYMPHOCYTES % (M) 16 % (15-51); METAMYELOCYTES #M 0.2 10^3/ul (0.0-0.0); METAMYELOCYTES %M 1 % (0-0); MONOCYTE #M 0.8 10^3/ul (0.3-0.9); MONOCYTES % (M) 4 % (0-11); MYELOCYTES % (M) 5 % (0-0); PLATELET ESTIMATE NORMAL; POLYCHROMASIA 2+ (0-0); SEG NEUT #M 15.2 10^3/ul (1.6-7.5); SEGMENTED NEUTROPHILS (M) % 71 % (39-77); SMUDGE%M 15 % (0-0); SPHEROCYTES 1+ (0-0)
[2018-10-01] MEDS: LEVOTHYROXINE 88 MCG TAB PO (08:33)
[2018-10-01] MEDS: COLLAGENASE 5 GM (UD JAR) TOP (08:33)
[2018-10-01] MEDS: APIXABAN 5 MG TABLET PO ×2 (08:34→20:28)
[2018-10-01] MEDS: MULTIVITAMINS THERAPEUTIC TAB PO (08:34)
[2018-10-01] MEDS: LIOTHYRONINE 5 MCG TAB PO (08:34)
[2018-10-01] MEDS: BALSAM PERU/CASTOR OIL 60 GM TUBE TOP ×2 (08:34→20:25)
[2018-10-01] MEDS: SERTRALINE 50 MG TAB PO (08:34)
[2018-10-01] MEDS: BUDESONIDE (NEB) 0.5MG/2ML AMP HHN ×2 (09:34→19:40)
[2018-10-01] MEDS: LACTULOSE 30ML CUP PO (16:01)
[2018-10-01] MEDS: METHYLPREDNISOLONE 125 MG INJ IV (17:52)
[2018-10-01] MEDS: CYCLOSPORINE 0.05% OPH DROPERETTE BOTH EYES (17:53)
[2018-10-01] MEDS: SODIUM CHLORIDE 5% 15ML OPH BOTH EYES (17:53)
[2018-10-01] MEDS: SODIUM CHLORIDE 5% 2.5 GM OPH OINT BOTH EYES (20:22)
[2018-10-01] MEDS: QUETIAPINE 100 MG TAB PO (20:26)
[2018-10-01] MEDS: LAMOTRIGINE 100 MG TAB PO (20:29)
[2018-10-01] MEDS: clonAZEPAM 0.5 MG TAB PO (22:12)
[2018-10-02] MEDS: ALBUTEROL/IPRATROPIUM (NEB) 3 ML AMP HHN ×6 (01:14→20:39)
[2018-10-02] MEDS: FUROSEMIDE 40 MG INJ IV ×2 (07:07→18:01)
[2018-10-02] MEDS: LEVOTHYROXINE 88 MCG TAB PO (07:07)
[2018-10-02] MEDS: PANTOPRAZOLE (EC) 40 MG TAB PO (07:07)
[2018-10-02] MEDS: SOD CHLORIDE 0.9% IVPB ×2 (07:27→18:09)
[2018-10-02] MEDS: COLISTIMETHATE IVPB ×2 (07:27→18:09)
[2018-10-02] MEDS: BUDESONIDE (NEB) 0.5MG/2ML AMP HHN ×2 (08:05→20:39)
[2018-10-02] MEDS: LIOTHYRONINE 5 MCG TAB PO (08:55)
[2018-10-02] MEDS: CYCLOSPORINE 0.05% OPH DROPERETTE BOTH EYES (08:55)
[2018-10-02] MEDS: MULTIVITAMINS THERAPEUTIC TAB PO (08:55)
[2018-10-02] MEDS: SERTRALINE 50 MG TAB PO (08:56)
[2018-10-02] MEDS: APIXABAN 5 MG TABLET PO ×2 (08:56→21:52)
[2018-10-02] MEDS: COLLAGENASE 5 GM (UD JAR) TOP (08:57)
[2018-10-02] MEDS: METHYLPREDNISOLONE 40 MG INJ IV ×2 (08:57→21:50)
[2018-10-02] MEDS: BALSAM PERU/CASTOR OIL 60 GM TUBE TOP ×2 (09:27→21:54)
[2018-10-02] MEDS: AL HYDROX/MG HYDROX/SIMETH 30 ML CUP PO (10:06)
[2018-10-02] MEDS: GUAIFENESIN/DM 5ML CUP PO (10:06)
[2018-10-02] MEDS: DOCUSATE SODIUM 100 MG CAP PO (10:06)
[2018-10-02] MEDS: LORAZEPAM 1 MG TAB PO ×2 (15:56→20:13)
[2018-10-02] MEDS: SODIUM CHLORIDE 5% 2.5 GM OPH OINT BOTH EYES (21:00)
[2018-10-02] MEDS: clonAZEPAM 0.5 MG TAB PO (21:50)
[2018-10-02] MEDS: QUETIAPINE 100 MG TAB PO (21:52)
[2018-10-02] MEDS: LAMOTRIGINE 100 MG TAB PO (23:17)
[2018-10-03] MEDS: ALBUTEROL/IPRATROPIUM (NEB) 3 ML AMP HHN ×6 (01:36→21:26)
[2018-10-03] MEDS: COLISTIMETHATE IVPB (06:47)
[2018-10-03] MEDS: SOD CHLORIDE 0.9% IVPB (06:47)
[2018-10-03] MEDS: FUROSEMIDE 40 MG INJ IV ×2 (06:48→17:50)
[2018-10-03] MEDS: LEVOTHYROXINE 88 MCG TAB PO (06:48)
[2018-10-03] MEDS: PANTOPRAZOLE (EC) 40 MG TAB PO (06:48)
[2018-10-03 07:25] LABS: ABNORMAL IP MESSAGE 1; HEMATOCRIT 39.1 % (37.0-47.0); HEMOGLOBIN 12.2 g/dl (12.0-16.0); MEAN CORPUSCULAR HEMOGLOBIN 28.6 pg (29.0-33.0); MEAN CORPUSCULAR HGB CONC 31.2 g/dl (32.0-37.0); MEAN CORPUSCULAR VOLUME 91.6 fl (82.0-101.0); MEAN PLATELET VOLUME 9.4 fl (7.4-10.4); NUCLEATED RED BLOOD CELLS% 0.1 /100WBC (0.0-0.0); PLATELET COUNT 324 10^3/UL (140-415); RED BLOOD COUNT 4.27 10^6/ul (4.20-5.40); RED CELL DISTRIBUTION WIDTH 14.3 % (11.5-14.5)
[2018-10-03 07:25] LABS: WHITE BLOOD COUNT 23.2 10^3/ul (4.8-10.8)
[2018-10-03 07:35] LABS: ADD MAN DIFF? YES; POSITIVE DIFF @See below
[2018-10-03 07:49] LABS: ANION GAP 6 (5-13); BLOOD UREA NITROGEN 30 mg/dl (7-20); CALCIUM 10.1 mg/dl (8.4-10.2); CARBON DIOXIDE 34 mmol/L (21-31); CHLORIDE 96 mmol/L (97-110); CREATININE 0.67 mg/dl (0.44-1.00); Estimated GFR > 60 mL/min (>60); GLUCOSE 128 mg/dl (70-220); POTASSIUM 3.8 mmol/L (3.5-5.1); SODIUM 136 mmol/L (135-144)
[2018-10-03 08:48] LABS: BAND NEUTROPHILS #M 0.6 10^3/ul (0.0-0.6); BAND NEUTROPHILS % (M) 3 % (0-4); LYMPHOCYTES #M 3.9 10^3/ul (0.8-2.9); LYMPHOCYTES % (M) 17 % (15-51); METAMYELOCYTES #M 0.4 10^3/ul (0.0-0.0); METAMYELOCYTES %M 2 % (0-0); MONOCYTE #M 1.8 10^3/ul (0.3-0.9); MONOCYTES % (M) 8 % (0-11); MYELOCYTES #M 0.2 10^3/ul (0.0-0.0); MYELOCYTES % (M) 1 % (0-0); PLATELET ESTIMATE NORMAL; REACTIVE LYMPHOCYTES #M 0.4 10^3/ul (0.0-0.0); REACTIVE LYMPHOCYTES% (M) 2 % (0-0); SEG NEUT #M 15.7 10^3/ul (1.6-7.5); SEGMENTED NEUTROPHILS (M) % 67 % (39-77); SMUDGE%M 11 % (0-0)
[2018-10-03] MEDS: COLLAGENASE 5 GM (UD JAR) TOP (09:00)
[2018-10-03] MEDS: BALSAM PERU/CASTOR OIL 60 GM TUBE TOP ×2 (09:00→21:11)
[2018-10-03] MEDS: APIXABAN 5 MG TABLET PO ×2 (09:16→21:13)
[2018-10-03] MEDS: METHYLPREDNISOLONE 40 MG INJ IV ×2 (09:16→21:12)
[2018-10-03] MEDS: SERTRALINE 50 MG TAB PO (09:16)
[2018-10-03] MEDS: CYCLOSPORINE 0.05% OPH DROPERETTE BOTH EYES (09:16)
[2018-10-03] MEDS: MULTIVITAMINS THERAPEUTIC TAB PO (09:16)
[2018-10-03] MEDS: LIOTHYRONINE 5 MCG TAB PO (09:16)
[2018-10-03] MEDS: DOCUSATE SODIUM 100 MG CAP PO (09:24)
[2018-10-03] MEDS: BUDESONIDE (NEB) 0.5MG/2ML AMP HHN ×2 (09:27→21:26)
[2018-10-03] MEDS: SODIUM CHLORIDE 5% 2.5 GM OPH OINT BOTH EYES (21:00)
[2018-10-03] MEDS: clonAZEPAM 0.5 MG TAB PO (21:06)
[2018-10-03] MEDS: QUETIAPINE 100 MG TAB PO (21:10)
[2018-10-03] MEDS: LAMOTRIGINE 100 MG TAB PO (21:10)
[2018-10-03] MEDS: NYSTATIN 30 GM POWDER BTL TOP (21:11)
[2018-10-03] MEDS: HYDROCODONE/APAP (5/325) TAB PO (22:51)
[2018-10-04] MEDS: ALBUTEROL/IPRATROPIUM (NEB) 3 ML AMP HHN ×6 (01:06→20:58)
[2018-10-04] MEDS: FUROSEMIDE 40 MG INJ IV ×3 (06:00→17:47)
[2018-10-04] MEDS: PANTOPRAZOLE (EC) 40 MG TAB PO (06:00)
[2018-10-04] MEDS: LEVOTHYROXINE 88 MCG TAB PO ×2 (06:12→07:25)
[2018-10-04] MEDS: BUDESONIDE (NEB) 0.5MG/2ML AMP HHN ×2 (08:47→20:50)
[2018-10-04] MEDS: COLLAGENASE 5 GM (UD JAR) TOP (09:40)
[2018-10-04] MEDS: MULTIVITAMINS THERAPEUTIC TAB PO (09:41)
[2018-10-04] MEDS: SERTRALINE 50 MG TAB PO (09:41)
[2018-10-04] MEDS: LIOTHYRONINE 5 MCG TAB PO (09:41)
[2018-10-04] MEDS: APIXABAN 5 MG TABLET PO ×2 (09:41→21:45)
[2018-10-04] MEDS: METHYLPREDNISOLONE 40 MG INJ IV ×2 (09:41→21:44)
[2018-10-04] MEDS: BALSAM PERU/CASTOR OIL 60 GM TUBE TOP ×2 (09:42→21:46)
[2018-10-04] MEDS: CYCLOSPORINE 0.05% OPH DROPERETTE BOTH EYES (09:42)
[2018-10-04] MEDS: NYSTATIN 30 GM POWDER BTL TOP ×2 (09:43→21:47)
[2018-10-04] MEDS: LORAZEPAM 1 MG TAB PO (20:19)
[2018-10-04] MEDS: LACTULOSE 30ML CUP PO (20:19)
[2018-10-04] MEDS: SODIUM CHLORIDE 5% 2.5 GM OPH OINT BOTH EYES (21:00)
[2018-10-04] MEDS: LAMOTRIGINE 100 MG TAB PO (21:45)
[2018-10-04] MEDS: clonAZEPAM 0.5 MG TAB PO (21:45)
[2018-10-04] MEDS: QUETIAPINE 100 MG TAB PO (21:46)
[2018-10-05] MEDS: ALBUTEROL/IPRATROPIUM (NEB) 3 ML AMP HHN ×7 (01:00→20:28)
[2018-10-05] MEDS: LEVOTHYROXINE 88 MCG TAB PO (06:35)
[2018-10-05] MEDS: PANTOPRAZOLE (EC) 40 MG TAB PO (06:35)
[2018-10-05] MEDS: FUROSEMIDE 40 MG INJ IV ×3 (06:41→21:30)
[2018-10-05 07:17] LABS: WHITE BLOOD COUNT 26.8 10^3/ul (4.8-10.8)
[2018-10-05 07:17] LABS: ABNORMAL IP MESSAGE 1; HEMATOCRIT 39.8 % (37.0-47.0); HEMOGLOBIN 12.6 g/dl (12.0-16.0); MEAN CORPUSCULAR HEMOGLOBIN 28.8 pg (29.0-33.0); MEAN CORPUSCULAR HGB CONC 31.7 g/dl (32.0-37.0); MEAN CORPUSCULAR VOLUME 91.1 fl (82.0-101.0); MEAN PLATELET VOLUME 9.6 fl (7.4-10.4); PLATELET COUNT 371 10^3/UL (140-415); RED BLOOD COUNT 4.37 10^6/ul (4.20-5.40); RED CELL DISTRIBUTION WIDTH 14.2 % (11.5-14.5)
[2018-10-05 07:22] LABS: ADD MAN DIFF? YES; POSITIVE DIFF @See below
[2018-10-05 07:44] LABS: MAGNESIUM 2.3 mg/dl (1.7-2.5)
[2018-10-05 07:44] LABS: PHOSPHORUS 4.6 mg/dl (2.5-4.9)
[2018-10-05 07:46] LABS: ANION GAP 8 (5-13); BLOOD UREA NITROGEN 35 mg/dl (7-20); CALCIUM 9.9 mg/dl (8.4-10.2); CARBON DIOXIDE 35 mmol/L (21-31); CHLORIDE 94 mmol/L (97-110); CREATININE 0.61 mg/dl (0.44-1.00); Estimated GFR > 60 mL/min (>60); GLUCOSE 147 mg/dl (70-220); POTASSIUM 3.3 mmol/L (3.5-5.1); SODIUM 137 mmol/L (135-144)
[2018-10-05 07:58] LABS: BAND NEUTROPHILS #M 0.5 10^3/ul (0.0-0.6); BAND NEUTROPHILS % (M) 2 % (0-4); GIANT THROMBO% (M) 1 % (0-0); LYMPHOCYTES #M 2.6 10^3/ul (0.8-2.9); LYMPHOCYTES % (M) 10 % (15-51); METAMYELOCYTES #M 0.5 10^3/ul (0.0-0.0); METAMYELOCYTES %M 2 % (0-0); MONOCYTES % (M) 4 % (0-11); MYELOCYTES #M 0.5 10^3/ul (0.0-0.0); MYELOCYTES % (M) 2 % (0-0); PLATELET ESTIMATE NORMAL; POLYCHROMASIA 3+ (0-0); REACTIVE LYMPHOCYTES #M 0.2 10^3/ul (0.0-0.0); REACTIVE LYMPHOCYTES% (M) 1 % (0-0); SEG NEUT #M 21.3 10^3/ul (1.6-7.5); SEGMENTED NEUTROPHILS (M) % 79 % (39-77); SMUDGE%M 8 % (0-0)
[2018-10-05] MEDS: BUDESONIDE (NEB) 0.5MG/2ML AMP HHN ×2 (08:14→20:28)
[2018-10-05] MEDS: LIOTHYRONINE 5 MCG TAB PO (08:48)
[2018-10-05] MEDS: METHYLPREDNISOLONE 40 MG INJ IV (08:48)
[2018-10-05] MEDS: SERTRALINE 50 MG TAB PO (08:49)
[2018-10-05] MEDS: MULTIVITAMINS THERAPEUTIC TAB PO (08:49)
[2018-10-05] MEDS: APIXABAN 5 MG TABLET PO ×2 (08:49→21:34)
[2018-10-05] MEDS: COLLAGENASE 5 GM (UD JAR) TOP (08:50)
[2018-10-05] MEDS: BALSAM PERU/CASTOR OIL 60 GM TUBE TOP ×2 (08:50→21:00)
[2018-10-05] MEDS: NYSTATIN 30 GM POWDER BTL TOP ×2 (08:51→21:00)
[2018-10-05] MEDS: CYCLOSPORINE 0.05% OPH DROPERETTE BOTH EYES (08:52)
[2018-10-05] MEDS: POTASSIUM CHLORIDE (SR) 20 MEQ TAB PO (11:48)
[2018-10-05] MEDS: SODIUM CHLORIDE 5% 2.5 GM OPH OINT BOTH EYES (21:00)
[2018-10-05] MEDS: ZYVOX 600 MG TAB PO ×2 (21:00→21:34)
[2018-10-05] MEDS: clonAZEPAM 0.5 MG TAB PO (21:33)
[2018-10-05] MEDS: LACTULOSE 30ML CUP PO (21:33)
[2018-10-05] MEDS: LAMOTRIGINE 100 MG TAB PO (21:34)
[2018-10-05] MEDS: QUETIAPINE 100 MG TAB PO (21:35)
[2018-10-06] MEDS: ALBUTEROL/IPRATROPIUM (NEB) 3 ML AMP HHN ×6 (01:00→20:25)
[2018-10-06] MEDS: FUROSEMIDE 40 MG INJ IV ×2 (05:39→17:22)
[2018-10-06] MEDS: PANTOPRAZOLE (EC) 40 MG TAB PO (05:50)
[2018-10-06] MEDS: HYDROCODONE/APAP (5/325) TAB PO ×2 (05:50→10:56)
[2018-10-06 06:30] LABS: WHITE BLOOD COUNT 26.5 10^3/ul (4.8-10.8)
[2018-10-06 06:30] LABS: ABNORMAL IP MESSAGE 1; HEMATOCRIT 37.5 % (37.0-47.0); HEMOGLOBIN 11.9 g/dl (12.0-16.0); MEAN CORPUSCULAR HEMOGLOBIN 29.2 pg (29.0-33.0); MEAN CORPUSCULAR HGB CONC 31.7 g/dl (32.0-37.0); MEAN CORPUSCULAR VOLUME 92.1 fl (82.0-101.0); MEAN PLATELET VOLUME 9.6 fl (7.4-10.4); PLATELET COUNT 365 10^3/UL (140-415); RED BLOOD COUNT 4.07 10^6/ul (4.20-5.40); RED CELL DISTRIBUTION WIDTH 14.4 % (11.5-14.5)
[2018-10-06 06:36] LABS: ANION GAP 6 (5-13); BLOOD UREA NITROGEN 33 mg/dl (7-20); CALCIUM 9.9 mg/dl (8.4-10.2); CARBON DIOXIDE 35 mmol/L (21-31); CHLORIDE 99 mmol/L (97-110); CREATININE 0.66 mg/dl (0.44-1.00); Estimated GFR > 60 mL/min (>60); GLUCOSE 125 mg/dl (70-220); POTASSIUM 3.6 mmol/L (3.5-5.1); SODIUM 140 mmol/L (135-144)
[2018-10-06 06:44] LABS: POSITIVE DIFF @See below
[2018-10-06 06:45] LABS: ADD MAN DIFF? YES
[2018-10-06] MEDS: LEVOTHYROXINE 88 MCG TAB PO (06:53)
[2018-10-06 07:28] LABS: PHOSPHORUS 3.7 mg/dl (2.5-4.9)
[2018-10-06 07:28] LABS: MAGNESIUM 2.3 mg/dl (1.7-2.5)
[2018-10-06] MEDS: BUDESONIDE (NEB) 0.5MG/2ML AMP HHN ×2 (08:19→20:25)
[2018-10-06] MEDS: MULTIVITAMINS THERAPEUTIC TAB PO (08:37)
[2018-10-06] MEDS: APIXABAN 5 MG TABLET PO ×2 (08:40→20:33)
[2018-10-06] MEDS: METHYLPREDNISOLONE 40 MG INJ IV (08:40)
[2018-10-06] MEDS: SERTRALINE 50 MG TAB PO (08:41)
[2018-10-06] MEDS: ZYVOX 600 MG TAB PO (08:41)
[2018-10-06] MEDS: LIOTHYRONINE 5 MCG TAB PO (08:41)
[2018-10-06] MEDS: CYCLOSPORINE 0.05% OPH DROPERETTE BOTH EYES (08:42)
[2018-10-06] MEDS: NYSTATIN 30 GM POWDER BTL TOP ×2 (08:48→20:41)
[2018-10-06] MEDS: COLLAGENASE 5 GM (UD JAR) TOP (08:49)
[2018-10-06] MEDS: BALSAM PERU/CASTOR OIL 60 GM TUBE TOP ×2 (08:49→20:36)
[2018-10-06 09:53] LABS: ANISOCYTOSIS 1+ (0-0); BAND NEUTROPHILS #M 0.7 10^3/ul (0.0-0.6); BAND NEUTROPHILS % (M) 3 % (0-4); EOSINOPHILS % (M) 1 % (0-7); LYMPHOCYTES #M 3.9 10^3/ul (0.8-2.9); LYMPHOCYTES % (M) 15 % (15-51); METAMYELOCYTES #M 0.5 10^3/ul (0.0-0.0); METAMYELOCYTES %M 2 % (0-0); MONOCYTE #M 0.7 10^3/ul (0.3-0.9); MONOCYTES % (M) 3 % (0-11); MYELOCYTES #M 0.5 10^3/ul (0.0-0.0); MYELOCYTES % (M) 2 % (0-0); PLATELET ESTIMATE NORMAL; POLYCHROMASIA 3+ (0-0); REACTIVE LYMPHOCYTES #M 0.2 10^3/ul (0.0-0.0); REACTIVE LYMPHOCYTES% (M) 1 % (0-0); SEG NEUT #M 19.5 10^3/ul (1.6-7.5); SEGMENTED NEUTROPHILS (M) % 73 % (39-77); SMUDGE%M 24 % (0-0)
[2018-10-06 17:06] LABS: ADD UMIC NO; UR ASCORBIC ACID 40 mg/dL (NEGATIVE); UR BILIRUBIN (Dip) NEGATIVE (NEGATIVE); UR BLOOD (Dip) NEGATIVE (NEGATIVE); UR CLARITY SLIGHTLY CLOUDY (CLEAR); UR COLOR YELLOW (YELLOW); UR GLUCOSE (Dip) 1+ mg/dL (NEGATIVE); UR KETONES (Dip) NEGATIVE (NEGATIVE); UR LEUKOCYTE ESTERASE (Dip) NEGATIVE Leu/ul (NEGATIVE); UR MUCUS FEW /HPF (NONE SEEN); UR NITRITE (Dip) NEGATIVE (NEGATIVE); UR RBC 0 /HPF (0-5); UR SPECIFIC GRAVITY (Dip) 1.025 (1.003-1.030); UR TOTAL PROTEIN (Dip) NEGATIVE (NEGATIVE); UR UROBILINOGEN (Dip) NEGATIVE (NEGATIVE); UR WBC 3 /HPF (0-5)
[2018-10-06] MEDS: QUETIAPINE 100 MG TAB PO (20:33)
[2018-10-06] MEDS: LAMOTRIGINE 100 MG TAB PO (20:34)
[2018-10-06] MEDS: clonAZEPAM 0.5 MG TAB PO (20:34)
[2018-10-06] MEDS: DOCUSATE SODIUM 100 MG CAP PO (20:46)
[2018-10-06] MEDS: LACTULOSE 30ML CUP PO (20:47)
[2018-10-06] MEDS: SODIUM CHLORIDE 5% 2.5 GM OPH OINT BOTH EYES (20:49)
[2018-10-07] MEDS: ALBUTEROL/IPRATROPIUM (NEB) 3 ML AMP HHN ×6 (00:59→20:27)
[2018-10-07] MEDS: PANTOPRAZOLE (EC) 40 MG TAB PO (06:00)
[2018-10-07] MEDS: LEVOTHYROXINE 88 MCG TAB PO (06:00)
[2018-10-07 06:21] LABS: ABNORMAL IP MESSAGE 1; HEMATOCRIT 35.4 % (37.0-47.0); HEMOGLOBIN 11.2 g/dl (12.0-16.0); MEAN CORPUSCULAR HEMOGLOBIN 29.2 pg (29.0-33.0); MEAN CORPUSCULAR HGB CONC 31.6 g/dl (32.0-37.0); MEAN CORPUSCULAR VOLUME 92.2 fl (82.0-101.0); MEAN PLATELET VOLUME 9.2 fl (7.4-10.4); PLATELET COUNT 325 10^3/UL (140-415); RED BLOOD COUNT 3.84 10^6/ul (4.20-5.40); RED CELL DISTRIBUTION WIDTH 14.6 % (11.5-14.5)
[2018-10-07 06:21] LABS: WHITE BLOOD COUNT 24.5 10^3/ul (4.8-10.8)
[2018-10-07 06:24] LABS: ADD MAN DIFF? YES; POSITIVE DIFF @See below
[2018-10-07 06:50] LABS: EOSINOPHILS % (M) 2 % (0-7); LYMPHOCYTES #M 5.3 10^3/ul (0.8-2.9); LYMPHOCYTES % (M) 22 % (15-51); MONOCYTE #M 2.6 10^3/ul (0.3-0.9); MONOCYTES % (M) 11 % (0-11); MYELOCYTES #M 0.9 10^3/ul (0.0-0.0); MYELOCYTES % (M) 4 % (0-0); PLATELET ESTIMATE NORMAL; SEGMENTED NEUTROPHILS (M) % 61 % (39-77); SMUDGE%M 8 % (0-0)
[2018-10-07] MEDS: FUROSEMIDE 40 MG INJ IV ×2 (08:45→18:49)
[2018-10-07] MEDS: COLLAGENASE 5 GM (UD JAR) TOP (08:46)
[2018-10-07] MEDS: NYSTATIN 30 GM POWDER BTL TOP ×2 (08:46→20:46)
[2018-10-07] MEDS: BALSAM PERU/CASTOR OIL 60 GM TUBE TOP ×2 (08:46→20:46)
[2018-10-07] MEDS: LIOTHYRONINE 5 MCG TAB PO (08:47)
[2018-10-07] MEDS: SERTRALINE 50 MG TAB PO (08:47)
[2018-10-07] MEDS: APIXABAN 5 MG TABLET PO ×2 (08:47→20:48)
[2018-10-07] MEDS: MULTIVITAMINS THERAPEUTIC TAB PO (08:47)
[2018-10-07] MEDS: METHYLPREDNISOLONE 40 MG INJ IV (08:47)
[2018-10-07] MEDS: CYCLOSPORINE 0.05% OPH DROPERETTE BOTH EYES (08:49)
[2018-10-07] MEDS: BUDESONIDE (NEB) 0.5MG/2ML AMP HHN ×2 (09:09→20:39)
[2018-10-07] MEDS: LORAZEPAM 1 MG TAB PO (15:40)
[2018-10-07] MEDS: HYDROCODONE/APAP (5/325) TAB PO (18:47)
[2018-10-07] MEDS: DOCUSATE SODIUM 100 MG CAP PO (20:47)
[2018-10-07] MEDS: LACTULOSE 30ML CUP PO (20:47)
[2018-10-07] MEDS: QUETIAPINE 100 MG TAB PO (20:49)
[2018-10-07] MEDS: clonAZEPAM 0.5 MG TAB PO (20:49)
[2018-10-07] MEDS: LAMOTRIGINE 100 MG TAB PO (20:50)
[2018-10-07] MEDS: SODIUM CHLORIDE 5% 2.5 GM OPH OINT BOTH EYES (20:52)
[2018-10-08] MEDS: ALBUTEROL/IPRATROPIUM (NEB) 3 ML AMP HHN ×6 (01:00→20:36)
[2018-10-08] MEDS: LEVOTHYROXINE 88 MCG TAB PO (06:18)
[2018-10-08] MEDS: PANTOPRAZOLE (EC) 40 MG TAB PO (06:18)
[2018-10-08 07:42] LABS: WHITE BLOOD COUNT 21.1 10^3/ul (4.8-10.8)
[2018-10-08 07:42] LABS: ABNORMAL IP MESSAGE 1; HEMATOCRIT 34.9 % (37.0-47.0); MEAN CORPUSCULAR HEMOGLOBIN 29.3 pg (29.0-33.0); MEAN CORPUSCULAR HGB CONC 31.5 g/dl (32.0-37.0); MEAN CORPUSCULAR VOLUME 92.8 fl (82.0-101.0); MEAN PLATELET VOLUME 9.2 fl (7.4-10.4); PLATELET COUNT 326 10^3/UL (140-415); RED BLOOD COUNT 3.76 10^6/ul (4.20-5.40); RED CELL DISTRIBUTION WIDTH 14.5 % (11.5-14.5)
[2018-10-08 07:49] LABS: ADD MAN DIFF? YES; POSITIVE DIFF @See below
[2018-10-08 08:09] LABS: MAGNESIUM 2.2 mg/dl (1.7-2.5)
[2018-10-08 08:12] LABS: ANION GAP 7 (5-13); BLOOD UREA NITROGEN 23 mg/dl (7-20); CALCIUM 9.6 mg/dl (8.4-10.2); CARBON DIOXIDE 35 mmol/L (21-31); CHLORIDE 95 mmol/L (97-110); CREATININE 0.63 mg/dl (0.44-1.00); Estimated GFR > 60 mL/min (>60); GLUCOSE 136 mg/dl (70-220); SODIUM 137 mmol/L (135-144)
[2018-10-08 08:20] LABS: POTASSIUM 2.9 mmol/L (3.5-5.1)
[2018-10-08] MEDS: POTASSIUM CHLORIDE (SR) 20 MEQ TAB PO ×2 (09:12→10:13)
[2018-10-08 09:25] LABS: ANISOCYTOSIS 1+ (0-0); BAND NEUTROPHILS #M 0.4 10^3/ul (0.0-0.6); BAND NEUTROPHILS % (M) 2 % (0-4); BURR CELLS 1+ (0-0); EOSINOPHILS % (M) 3 % (0-7); GIANT THROMBO% (M) 1 % (0-0); LYMPHOCYTES #M 5.6 10^3/ul (0.8-2.9); LYMPHOCYTES % (M) 27 % (15-51); METAMYELOCYTES #M 0.2 10^3/ul (0.0-0.0); METAMYELOCYTES %M 1 % (0-0); MICROCYTOSIS 1+ (0-0); MONOCYTE #M 0.4 10^3/ul (0.3-0.9); MONOCYTES % (M) 2 % (0-11); MYELOCYTES #M 0.4 10^3/ul (0.0-0.0); MYELOCYTES % (M) 2 % (0-0); PLATELET ESTIMATE NORMAL; POLYCHROMASIA 1+ (0-0); PROMYELOCYTES #M 0.4 10^3/ul (0-0); PROMYELOCYTES % (M) 2 % (0-0); SEGMENTED NEUTROPHILS (M) % 61 % (39-77); SMUDGE%M 1 % (0-0); SPHEROCYTES 1+ (0-0)
[2018-10-08] MEDS: BUDESONIDE (NEB) 0.5MG/2ML AMP HHN ×2 (09:26→20:36)
[2018-10-08] MEDS: FUROSEMIDE 40 MG INJ IV ×2 (10:12→17:14)
[2018-10-08] MEDS: METHYLPREDNISOLONE 40 MG INJ IV (10:12)
[2018-10-08] MEDS: COLLAGENASE 5 GM (UD JAR) TOP (10:12)
[2018-10-08] MEDS: MULTIVITAMINS THERAPEUTIC TAB PO (10:12)
[2018-10-08] MEDS: NYSTATIN 30 GM POWDER BTL TOP ×2 (10:12→21:04)
[2018-10-08] MEDS: APIXABAN 5 MG TABLET PO ×2 (10:12→21:02)
[2018-10-08] MEDS: LIOTHYRONINE 5 MCG TAB PO (10:12)
[2018-10-08] MEDS: SERTRALINE 50 MG TAB PO (10:13)
[2018-10-08] MEDS: BALSAM PERU/CASTOR OIL 60 GM TUBE TOP ×2 (10:19→21:03)
[2018-10-08] MEDS: POTASSIUM CHLORIDE 20 MEQ POWDER FOR ORAL SOLN PO ×2 (12:02→14:55)
[2018-10-08] MEDS: CYCLOSPORINE 0.05% OPH DROPERETTE BOTH EYES (12:02)
[2018-10-08] MEDS ORDERED: POTASSIUM CHLORIDE (SR) 20 MEQ TAB PO (14:00)
[2018-10-08] MEDS: POTASSIUM CHLORIDE 100 ML IVPB ×2 (17:14→19:26)
[2018-10-08] MEDS: SODIUM CHLORIDE 5% 2.5 GM OPH OINT BOTH EYES (21:00)
[2018-10-08] MEDS: clonAZEPAM 0.5 MG TAB PO (21:02)
[2018-10-08] MEDS: LAMOTRIGINE 100 MG TAB PO (21:03)
[2018-10-08] MEDS: QUETIAPINE 100 MG TAB PO (21:03)
[2018-10-08] MEDS: LACTULOSE 30ML CUP PO (21:31)
[2018-10-08] MEDS: DOCUSATE SODIUM 100 MG CAP PO (22:04)
[2018-10-09] MEDS: ALBUTEROL/IPRATROPIUM (NEB) 3 ML AMP HHN ×6 (01:00→20:55)
[2018-10-09] MEDS: FUROSEMIDE 40 MG INJ IV ×3 (06:17→09:48)
[2018-10-09] MEDS: LEVOTHYROXINE 88 MCG TAB PO (06:18)
[2018-10-09] MEDS: PANTOPRAZOLE (EC) 40 MG TAB PO (06:18)
[2018-10-09] MEDS: COLLAGENASE 5 GM (UD JAR) TOP (08:36)
[2018-10-09] MEDS: NYSTATIN 30 GM POWDER BTL TOP ×2 (08:37→21:09)
[2018-10-09] MEDS: BALSAM PERU/CASTOR OIL 60 GM TUBE TOP ×2 (08:37→21:08)
[2018-10-09] MEDS: METHYLPREDNISOLONE 40 MG INJ IV (08:37)
[2018-10-09] MEDS: CYCLOSPORINE 0.05% OPH DROPERETTE BOTH EYES (08:38)
[2018-10-09] MEDS: LIOTHYRONINE 5 MCG TAB PO (08:39)
[2018-10-09] MEDS: MULTIVITAMINS THERAPEUTIC TAB PO (08:40)
[2018-10-09] MEDS: SERTRALINE 50 MG TAB PO (08:40)
[2018-10-09] MEDS: BUDESONIDE (NEB) 0.5MG/2ML AMP HHN ×2 (09:15→21:00)
[2018-10-09] MEDS: APIXABAN 5 MG TABLET PO ×2 (09:48→21:06)
[2018-10-09 11:36] LABS: ABNORMAL IP MESSAGE 1; HEMATOCRIT 37.6 % (37.0-47.0); HEMOGLOBIN 11.7 g/dl (12.0-16.0); MEAN CORPUSCULAR HGB CONC 31.1 g/dl (32.0-37.0); MEAN CORPUSCULAR VOLUME 93.3 fl (82.0-101.0); MEAN PLATELET VOLUME 9.5 fl (7.4-10.4); PLATELET COUNT 351 10^3/UL (140-415); RED BLOOD COUNT 4.03 10^6/ul (4.20-5.40); RED CELL DISTRIBUTION WIDTH 14.8 % (11.5-14.5)
[2018-10-09 11:39] LABS: ADD MAN DIFF? YES; POSITIVE DIFF @See below
[2018-10-09 11:53] LABS: ANION GAP 8 (5-13); BLOOD UREA NITROGEN 30 mg/dl (7-20); CARBON DIOXIDE 33 mmol/L (21-31); CHLORIDE 97 mmol/L (97-110); CREATININE 0.78 mg/dl (0.44-1.00); Estimated GFR > 60 mL/min (>60); GLUCOSE 177 mg/dl (70-220); POTASSIUM 4.1 mmol/L (3.5-5.1); SODIUM 138 mmol/L (135-144)
[2018-10-09 13:07] LABS: ANISOCYTOSIS 1+ (0-0); BAND NEUTROPHILS #M 0.2 10^3/ul (0.0-0.6); BAND NEUTROPHILS % (M) 1 % (0-4); EOSINOPHILS % (M) 1 % (0-7); GIANT THROMBO% (M) 1 % (0-0); LYMPHOCYTES #M 2.8 10^3/ul (0.8-2.9); LYMPHOCYTES % (M) 13 % (15-51); METAMYELOCYTES #M 0.2 10^3/ul (0.0-0.0); METAMYELOCYTES %M 1 % (0-0); MICROCYTOSIS 1+ (0-0); MONOCYTE #M 0.2 10^3/ul (0.3-0.9); MONOCYTES % (M) 1 % (0-11); MYELOCYTES #M 0.4 10^3/ul (0.0-0.0); MYELOCYTES % (M) 2 % (0-0); PLATELET ESTIMATE NORMAL; POIKILOCYTOSIS 1+ (0-0); POLYCHROMASIA 3+ (0-0); SEG NEUT #M 17.9 10^3/ul (1.6-7.5); SEGMENTED NEUTROPHILS (M) % 81 % (39-77); SMUDGE%M 5 % (0-0); STOMATOCYTES 1+ (0-0)
[2018-10-09] MEDS: LACTOBACILLUS RHAMNOSUS CAP PO ×2 (15:09→22:26)
[2018-10-09] MEDS: LORAZEPAM 1 MG TAB PO (16:10)
[2018-10-09] MEDS ORDERED: FUROSEMIDE 40 MG INJ IV (21:00)
[2018-10-09] MEDS: SODIUM CHLORIDE 5% 2.5 GM OPH OINT BOTH EYES (21:00)
[2018-10-09] MEDS: clonAZEPAM 0.5 MG TAB PO (21:05)
[2018-10-09] MEDS: LAMOTRIGINE 100 MG TAB PO (21:23)
[2018-10-09] MEDS: QUETIAPINE 100 MG TAB PO (21:23)
[2018-10-09] MEDS: LACTULOSE 30ML CUP PO (21:33)
[2018-10-09] MEDS: DOCUSATE SODIUM 100 MG CAP PO (21:33)
[2018-10-10] MEDS: ALBUTEROL/IPRATROPIUM (NEB) 3 ML AMP HHN ×6 (01:07→21:09)
[2018-10-10] MEDS: LEVOTHYROXINE 88 MCG TAB PO (06:34)
[2018-10-10] MEDS: PANTOPRAZOLE (EC) 40 MG TAB PO (06:34)
[2018-10-10] MEDS: BUDESONIDE (NEB) 0.5MG/2ML AMP HHN ×2 (08:13→21:09)
[2018-10-10] MEDS: LIOTHYRONINE 5 MCG TAB PO (08:35)
[2018-10-10] MEDS: APIXABAN 5 MG TABLET PO ×2 (08:35→20:59)
[2018-10-10] MEDS: METHYLPREDNISOLONE 40 MG INJ IV (08:35)
[2018-10-10] MEDS: LACTOBACILLUS RHAMNOSUS CAP PO ×2 (08:35→20:54)
[2018-10-10] MEDS: COLLAGENASE 5 GM (UD JAR) TOP (08:35)
[2018-10-10] MEDS: MULTIVITAMINS THERAPEUTIC TAB PO (08:35)
[2018-10-10] MEDS: SERTRALINE 50 MG TAB PO (08:35)
[2018-10-10] MEDS: FUROSEMIDE 40 MG INJ IV (08:36)
[2018-10-10] MEDS: CYCLOSPORINE 0.05% OPH DROPERETTE BOTH EYES (10:13)
[2018-10-10] MEDS: BALSAM PERU/CASTOR OIL 60 GM TUBE TOP ×2 (10:27→20:56)
[2018-10-10] MEDS: NYSTATIN 30 GM POWDER BTL TOP ×2 (10:27→20:57)
[2018-10-10] MEDS: LORAZEPAM 1 MG TAB PO ×2 (14:18→18:18)
[2018-10-10] MEDS: SODIUM CHLORIDE 5% 2.5 GM OPH OINT BOTH EYES (20:53)
[2018-10-10] MEDS: LAMOTRIGINE 100 MG TAB PO (20:54)
[2018-10-10] MEDS: LACTULOSE 30ML CUP PO (20:54)
[2018-10-10] MEDS: DOCUSATE SODIUM 100 MG CAP PO (20:54)
[2018-10-10] MEDS: clonAZEPAM 0.5 MG TAB PO (20:54)
[2018-10-10] MEDS: QUETIAPINE 100 MG TAB PO (22:22)
[2018-10-11] MEDS: ALBUTEROL/IPRATROPIUM (NEB) 3 ML AMP HHN ×8 (01:00→20:41)
[2018-10-11] MEDS: LEVOTHYROXINE 88 MCG TAB PO (06:23)
[2018-10-11] MEDS: PANTOPRAZOLE (EC) 40 MG TAB PO (06:23)
[2018-10-11] MEDS: BUDESONIDE (NEB) 0.5MG/2ML AMP HHN ×3 (09:00→20:41)
[2018-10-11] MEDS: APIXABAN 5 MG TABLET PO ×2 (09:02→21:05)
[2018-10-11] MEDS: LIOTHYRONINE 5 MCG TAB PO (09:02)
[2018-10-11] MEDS: MULTIVITAMINS THERAPEUTIC TAB PO (09:02)
[2018-10-11] MEDS: COLLAGENASE 5 GM (UD JAR) TOP (09:02)
[2018-10-11] MEDS: LACTOBACILLUS RHAMNOSUS CAP PO ×2 (09:02→21:05)
[2018-10-11] MEDS: CYCLOSPORINE 0.05% OPH DROPERETTE BOTH EYES (09:02)
[2018-10-11] MEDS: SERTRALINE 50 MG TAB PO (09:02)
[2018-10-11] MEDS: METHYLPREDNISOLONE 40 MG INJ IV (09:03)
[2018-10-11] MEDS: FUROSEMIDE 40 MG INJ IV (09:03)
[2018-10-11 10:28] LABS: WHITE BLOOD COUNT 19.2 10^3/ul (4.8-10.8)
[2018-10-11 10:28] LABS: ABNORMAL IP MESSAGE 1; HEMATOCRIT 36.2 % (37.0-47.0); HEMOGLOBIN 11.1 g/dl (12.0-16.0); MEAN CORPUSCULAR HGB CONC 30.7 g/dl (32.0-37.0); MEAN CORPUSCULAR VOLUME 94.5 fl (82.0-101.0); MEAN PLATELET VOLUME 9.2 fl (7.4-10.4); PLATELET COUNT 339 10^3/UL (140-415); RED BLOOD COUNT 3.83 10^6/ul (4.20-5.40)
[2018-10-11 10:33] LABS: ADD MAN DIFF? YES; POSITIVE DIFF @See below
[2018-10-11 11:11] LABS: BAND NEUTROPHILS #M 0.1 10^3/ul (0.0-0.6); BAND NEUTROPHILS % (M) 1 % (0-4); EOSINOPHILS % (M) 2 % (0-7); LYMPHOCYTES #M 5.1 10^3/ul (0.8-2.9); LYMPHOCYTES % (M) 27 % (15-51); MONOCYTE #M 0.3 10^3/ul (0.3-0.9); MONOCYTES % (M) 2 % (0-11); SEG NEUT #M 12.3 10^3/ul (1.6-7.5); SEGMENTED NEUTROPHILS (M) % 64 % (39-77)
[2018-10-11 11:12] LABS: METAMYELOCYTES #M 0.1 10^3/ul (0.0-0.0); METAMYELOCYTES %M 1 % (0-0); MICROCYTOSIS 2+ (0-0); MYELOCYTES #M 0.5 10^3/ul (0.0-0.0); MYELOCYTES % (M) 3 % (0-0); OVALOCYTES 1+ (0-0); PLATELET ESTIMATE NORMAL; POLYCHROMASIA 1+ (0-0); SMUDGE%M 17 % (0-0)
[2018-10-11] MEDS: BALSAM PERU/CASTOR OIL 60 GM TUBE TOP ×2 (11:43→21:13)
[2018-10-11] MEDS: NYSTATIN 30 GM POWDER BTL TOP ×2 (11:43→21:00)
[2018-10-11] MEDS: SODIUM CHLORIDE 5% 2.5 GM OPH OINT BOTH EYES (21:05)
[2018-10-11] MEDS: QUETIAPINE 100 MG TAB PO (21:05)
[2018-10-11] MEDS: LAMOTRIGINE 100 MG TAB PO (21:06)
[2018-10-11] MEDS: clonAZEPAM 0.5 MG TAB PO (21:12)
[2018-10-11] MEDS: DOCUSATE SODIUM 100 MG CAP PO (22:24)
[2018-10-11] MEDS: LACTULOSE 30ML CUP PO (22:24)
[2018-10-12] MEDS: ALBUTEROL/IPRATROPIUM (NEB) 3 ML AMP HHN ×6 (01:13→20:27)
[2018-10-12] MEDS: PANTOPRAZOLE (EC) 40 MG TAB PO (06:15)
[2018-10-12] MEDS: LEVOTHYROXINE 88 MCG TAB PO (06:15)
[2018-10-12] MEDS: APIXABAN 5 MG TABLET PO ×2 (08:41→21:12)
[2018-10-12] MEDS: MULTIVITAMINS THERAPEUTIC TAB PO (08:41)
[2018-10-12] MEDS: SERTRALINE 50 MG TAB PO (08:41)
[2018-10-12] MEDS: LACTOBACILLUS RHAMNOSUS CAP PO ×2 (08:41→21:12)
[2018-10-12] MEDS: LIOTHYRONINE 5 MCG TAB PO (08:41)
[2018-10-12] MEDS: METHYLPREDNISOLONE 40 MG INJ IV (08:42)
[2018-10-12] MEDS: FUROSEMIDE 40 MG INJ IV (08:42)
[2018-10-12] MEDS: NYSTATIN 30 GM POWDER BTL TOP ×2 (08:43→21:00)
[2018-10-12] MEDS: BALSAM PERU/CASTOR OIL 60 GM TUBE TOP ×2 (08:43→21:14)
[2018-10-12] MEDS: COLLAGENASE 5 GM (UD JAR) TOP (08:43)
[2018-10-12] MEDS: CYCLOSPORINE 0.05% OPH DROPERETTE BOTH EYES (09:22)
[2018-10-12] MEDS: BUDESONIDE (NEB) 0.5MG/2ML AMP HHN ×2 (10:45→20:27)
[2018-10-12] MEDS: GUAIFENESIN/DM 5ML CUP PO (11:16)
[2018-10-12] MEDS: BENZONATATE 100 MG CAP PO (11:16)
[2018-10-12] MEDS: CEPASTAT LOZENGE MT (14:50)
[2018-10-12] MEDS: HYDROCODONE/APAP (5/325) TAB PO ×2 (14:53→21:20)
[2018-10-12] MEDS: LORAZEPAM 1 MG TAB PO (16:54)
[2018-10-12] MEDS: SODIUM CHLORIDE 5% 2.5 GM OPH OINT BOTH EYES (21:12)
[2018-10-12] MEDS: clonAZEPAM 0.5 MG TAB PO (21:12)
[2018-10-12] MEDS: LAMOTRIGINE 100 MG TAB PO (21:13)
[2018-10-12] MEDS: DOCUSATE SODIUM 100 MG CAP PO (21:19)
[2018-10-12] MEDS: LACTULOSE 30ML CUP PO (21:20)
[2018-10-12] MEDS: QUETIAPINE 100 MG TAB PO (22:04)
[2018-10-13] MEDS: ALBUTEROL/IPRATROPIUM (NEB) 3 ML AMP HHN ×7 (01:00→20:10)
[2018-10-13] MEDS: PANTOPRAZOLE (EC) 40 MG TAB PO (05:54)
[2018-10-13] MEDS: LEVOTHYROXINE 88 MCG TAB PO (06:20)
[2018-10-13] MEDS: BUDESONIDE (NEB) 0.5MG/2ML AMP HHN ×2 (08:41→20:00)
[2018-10-13] MEDS: LACTOBACILLUS RHAMNOSUS CAP PO ×2 (08:55→21:06)
[2018-10-13] MEDS: LIOTHYRONINE 5 MCG TAB PO (08:55)
[2018-10-13] MEDS: CYCLOSPORINE 0.05% OPH DROPERETTE BOTH EYES (08:55)
[2018-10-13] MEDS: MULTIVITAMINS THERAPEUTIC TAB PO (08:56)
[2018-10-13] MEDS: predniSONE 10 MG TAB PO (08:56)
[2018-10-13] MEDS: SERTRALINE 50 MG TAB PO (08:57)
[2018-10-13] MEDS: FUROSEMIDE 40 MG INJ IV (09:00)
[2018-10-13] MEDS: APIXABAN 5 MG TABLET PO ×2 (09:16→21:06)
[2018-10-13] MEDS: BALSAM PERU/CASTOR OIL 60 GM TUBE TOP ×2 (09:17→21:00)
[2018-10-13] MEDS: COLLAGENASE 5 GM (UD JAR) TOP (09:17)
[2018-10-13] MEDS: NYSTATIN 30 GM POWDER BTL TOP ×2 (09:17→21:00)
[2018-10-13 12:00] LABS: WHITE BLOOD COUNT 20.8 10^3/ul (4.8-10.8)
[2018-10-13 12:00] LABS: ABNORMAL IP MESSAGE 1; HEMATOCRIT 36.5 % (37.0-47.0); MEAN CORPUSCULAR HEMOGLOBIN 28.4 pg (29.0-33.0); MEAN CORPUSCULAR HGB CONC 30.1 g/dl (32.0-37.0); MEAN CORPUSCULAR VOLUME 94.1 fl (82.0-101.0); MEAN PLATELET VOLUME 9.1 fl (7.4-10.4); PLATELET COUNT 323 10^3/UL (140-415); RED BLOOD COUNT 3.88 10^6/ul (4.20-5.40)
[2018-10-13 12:09] LABS: ADD MAN DIFF? YES; POSITIVE DIFF @See below
[2018-10-13 12:28] LABS: ANION GAP 12 (5-13); BLOOD UREA NITROGEN 22 mg/dl (7-20); CALCIUM 9.8 mg/dl (8.4-10.2); CARBON DIOXIDE 31 mmol/L (21-31); CHLORIDE 97 mmol/L (97-110); CREATININE 0.73 mg/dl (0.44-1.00); Estimated GFR > 60 mL/min (>60); GLUCOSE 215 mg/dl (70-220); POTASSIUM 3.4 mmol/L (3.5-5.1); SODIUM 140 mmol/L (135-144)
[2018-10-13 12:29] LABS: PHOSPHORUS 3.5 mg/dl (2.5-4.9)
[2018-10-13 12:29] LABS: MAGNESIUM 1.9 mg/dl (1.7-2.5)
[2018-10-13 13:01] LABS: ANISOCYTOSIS 1+ (0-0); BAND NEUTROPHILS % (M) 5 % (0-4); EOSINOPHILS % (M) 4 % (0-7); HYPOCHROMASIA 2+ (0-0); LYMPHOCYTES #M 2.4 10^3/ul (0.8-2.9); LYMPHOCYTES % (M) 12 % (15-51); METAMYELOCYTES #M 0.2 10^3/ul (0.0-0.0); METAMYELOCYTES %M 1 % (0-0); MICROCYTOSIS 1+ (0-0); MONOCYTE #M 1.4 10^3/ul (0.3-0.9); MONOCYTES % (M) 7 % (0-11); MYELOCYTES #M 0.2 10^3/ul (0.0-0.0); MYELOCYTES % (M) 1 % (0-0); PLATELET ESTIMATE NORMAL; POLYCHROMASIA 3+ (0-0); REACTIVE LYMPHOCYTES #M 1.4 10^3/ul (0.0-0.0); REACTIVE LYMPHOCYTES% (M) 7 % (0-0); SEG NEUT #M 13.3 10^3/ul (1.6-7.5); SEGMENTED NEUTROPHILS (M) % 63 % (39-77); SMUDGE%M 3 % (0-0)
[2018-10-13] MEDS: POTASSIUM CHLORIDE 100 ML IVPB (15:07)
[2018-10-13] MEDS: HYDROCODONE/APAP (5/325) TAB PO (16:21)
[2018-10-13] MEDS: LORAZEPAM 1 MG TAB PO (18:46)
[2018-10-13] MEDS: QUETIAPINE 100 MG TAB PO (21:05)
[2018-10-13] MEDS: clonAZEPAM 0.5 MG TAB PO (21:06)
[2018-10-13] MEDS: SODIUM CHLORIDE 5% 2.5 GM OPH OINT BOTH EYES (21:07)
[2018-10-13] MEDS ORDERED: LAMOTRIGINE 25 MG TAB PO (21:18)
[2018-10-13] MEDS: DOCUSATE SODIUM 100 MG CAP PO (21:23)
[2018-10-13] MEDS: LACTULOSE 30ML CUP PO (21:24)
[2018-10-13] MEDS: LAMOTRIGINE 25 MG TAB PO (21:26)
[2018-10-14] MEDS: ALBUTEROL/IPRATROPIUM (NEB) 3 ML AMP HHN ×3 (01:00→08:54)
[2018-10-14] MEDS: LEVOTHYROXINE 88 MCG TAB PO (06:05)
[2018-10-14] MEDS: PANTOPRAZOLE (EC) 40 MG TAB PO (06:05)
[2018-10-14] MEDS: FUROSEMIDE 40 MG INJ IV (06:05)
[2018-10-14] MEDS: MULTIVITAMINS THERAPEUTIC TAB PO (08:33)
[2018-10-14] MEDS: predniSONE 10 MG TAB PO (08:34)
[2018-10-14] MEDS: BALSAM PERU/CASTOR OIL 60 GM TUBE TOP (08:34)
[2018-10-14] MEDS: SERTRALINE 50 MG TAB PO (08:34)
[2018-10-14] MEDS: NYSTATIN 30 GM POWDER BTL TOP (08:34)
[2018-10-14] MEDS: LIOTHYRONINE 5 MCG TAB PO (08:34)
[2018-10-14] MEDS: APIXABAN 5 MG TABLET PO (08:34)
[2018-10-14] MEDS: LACTOBACILLUS RHAMNOSUS CAP PO (08:34)
[2018-10-14] MEDS: COLLAGENASE 5 GM (UD JAR) TOP (08:34)
[2018-10-14] MEDS: GUAIFENESIN/DM 5ML CUP PO (08:41)
[2018-10-14] MEDS: HYDROCODONE/APAP (5/325) TAB PO (08:41)
[2018-10-14] MEDS: BUDESONIDE (NEB) 0.5MG/2ML AMP HHN (08:54)
[2018-10-14] MEDS: CYCLOSPORINE 0.05% OPH DROPERETTE BOTH EYES (09:00)
[2018-10-14] MEDS: LORAZEPAM 1 MG TAB PO (13:35)
== END 2018-10-14 14:30 | disposition home or self-care (01) | DRG 175 ==
LOC: TEL 10-01 05:40 → ICU 09-25 16:14 → E/R 06:14 → PP2 10-09 17:22
PROC: 02HV33Z Insertion of Infusion Device into Superior Vena Cava, Percutaneous Approach (ICD-10-PCS; principal; 2018-09-26)
PROC: B548ZZA Ultrasonography of Superior Vena Cava, Guidance (ICD-10-PCS; 2018-09-26)
DX: I26.99 Other pulmonary embolism without acute cor pulmonale (principal); J18.9 Pneumonia, unspecified organism; J96.01 Acute respiratory failure with hypoxia; L89.153 Pressure ulcer of sacral region, stage 3; J44.0 Chronic obstructive pulmonary disease with (acute) lower respiratory infection; J44.1 Chronic obstructive pulmonary disease with (acute) exacerbation; N39.0 Urinary tract infection, site not specified; A04.72 Enterocolitis due to Clostridium difficile, not specified as recurrent; J84.10 Pulmonary fibrosis, unspecified; Z87.891 Personal history of nicotine dependence; I10 Essential (primary) hypertension; E03.9 Hypothyroidism, unspecified; F32.9 Major depressive disorder, single episode, unspecified; F41.9 Anxiety disorder, unspecified; I25.10 Atherosclerotic heart disease of native coronary artery without angina pectoris; F42.9 Obsessive-compulsive disorder, unspecified; K21.9 Gastro-esophageal reflux disease without esophagitis; L89.621 Pressure ulcer of left heel, stage 1; L89.611 Pressure ulcer of right heel, stage 1; I73.00 Raynaud's syndrome without gangrene
CPT/HCPCS: 36415; 36569; 36600; 71045; 71275; 76604; 76937; 80048; 80053; 81001; 81003; 82570; 82652; 82803; 83605; 83735; 84100; 84484; 85025; 85335; 85610; 85730; 86021; 86038; 86160; 86235; 86592; 86703; 86704; 86709; 86803; 87040; 87070; 87081; 87086; 87340; 90686; 93005; 93306; 93970; 94640; 94664; 94667; 94668; 96365; 96375; 97110; 97116; 97162; 97530; 99285-25